=== PATIENT | female | born 1950 | race Caucasian/White ===

== ENCOUNTER 2016-04-23 23:25 | Inpatient (IN) | payer OTHER ==
[~2016-04-23] VITALS: Ht 167.6 cm; Wt 49.5 kg
[~2016-04-23 23:25] MED LIST: GABA300C3 PO; LEVO50TA4 PO; NORC7.5T PO; OMEP20TA39 PO; ONDA8TAB8 PO; PLAV75TA PO; PROC10TA4 PO; PROM25TA5 PO; ST JTAB PO; SYMB160A INH; WALKER ROLLING
[2016-04-23 23:30] VITALS: PULSE 90; RESP 22; TEMP 98.3; O2SAT 100
[2016-04-23] MEDS ORDERED: methylPREDNISolone SOD SUCC 125 MG/2 ML VIAL IVP ONE (23:30)
--- NOTE | 2016-04-23 23:36 | PD ---
HPI Chief Complaint: Respiratory Distress Time Seen by Provider: 23:29 Travel History International Travel<30 days: No Contact w/Intl Traveler<30days: No Traveled to known affect area: No History of Present Illness HPI 65-year-old female with history of head and neck cancer, COPD, says post radiation therapy, chemotherapy every 3 weeks, last chemotherapy was last week, treated by oncologist Dr. Monahan, here for evaluation of shortness of breath and nonproductive cough. Symptoms have been progressively worsening since yesterday. Shortness of breath is at rest, worse with exertion. No fevers or chills. No chest pain. No history of DVT or PE. Patient is also complaining that her sacral decubitus ulcer is hurting her. She is able to ambulate from bed to the restroom. PFSH Past Medical History Anemia: Yes Arthritis: No Asthma: No Autoimmune Disease: No Anxiety: No Depression: No Heart Rhythm Problems: No Cancer: Yes (brain,neck, mets to lungs) Cardiovascular Problems: No High Cholesterol: No Chemotherapy: Yes (STARTED CHEMO 12/2015) Chest Pain: No Congestive Heart Failure: No COPD: No Cerebrovascular Accident: No Diabetes: No Endocrine: No Gastrointestinal Disorders: No GERD: No Genitourinary: No Hepatitis: No Hiatal Hernia: No Hypertension: No Immune Disorder: No Implanted Vascular Access Dvce: Yes Kidney Stones: No Musculoskeletal: No Neurologic: No Psychiatric: No Reproductive: No Respiratory: No Integumentary: No Migraines: No Radiation Therapy: No Renal Failure: No Seizures: No Sickle Cell Disease: Yes Sleep Apnea: No Thyroid Disease: Yes ?: Not LMP: menapause Past Surgical History Abdominal Surgery: No AICD: No Arteriovenous Shunt: No Body Medical Devices: CHEMOPORT R CHEST Cardiac Surgery: No Ear Surgery: No Endocrine Surgery: No Eye Surgery: No Genitourinary Surgery: No Gynecologic Surgery: Yes (D&C ) Insulin Pump: No Joint Replacement: No Oral Surgery: Yes Pacemaker: No Thoracic Surgery: No Tonsillectomy: Yes Other Surgery: Yes (catherization to both legs) Social History Alcohol Use: Yes Tobacco Use: Yes (2p) Substance Use: No Allergies-Medications (Allergen,Severity, Reaction): Coded Allergies: No Known Allergies (Verified , 07/09/15) Reported Meds & Prescriptions Reported Meds & Active Scripts Active Walker Rolling (Device) Device 1 Ea Reported Symbicort (Budesonide/Formoterol Fumarate) 160 Mcg/4.5 Mcg Aer 2 Puff INH BID * SHAKE WELL BEFORE USE * Compazine (Prochlorperazine Maleate) 10 Mg Tab 10 Mg PO Q6H PRN Take 1 tablet by mouth every 6 hours as needed for nausea and/or vomiting (generic for compazine) [place] 7.5-325 mg (Hydrocodone-Acetaminophen 7.5-325 mg) 1 Tab 1 Tab PO Q6H PRN Hm Omeprazole (Omeprazole) 20 Mg Tab 20 Mg PO DAILY Phenergan 25 mg (Promethazine HCl) 25 Mg Tab 25 Mg PO Q6H PRN Levothyroxine 50 mcg (Levothyroxine Sodium) 50 Mcg Tab 50 Mcg PO DAILY Gabapentin 300 Mg Cap 300 Mg PO TID Aspirin Ec Low Dose (Aspirin) 81 Mg Tab 81 Mg PO DAILY Plavix (Clopidogrel Bisulfate) 75 Mg Tab 75 Mg PO DAILY Ondansetron Odt (Ondansetron) 8 Mg Tab 1 Tab PO DIRECTED Review of Systems Except as stated in HPI: all other systems reviewed are Neg Physical Exam Narrative GENERAL: Well-developed, cachectic, comfortable, no acute distress. SKIN: Warm and dry. Stage II sacral decubitus ulcer with mild surrounding erythema and warmth, no purulent drainage. HEAD: Atraumatic. Normocephalic. EYES: Pupils equal and round. No scleral icterus. No injection or drainage. ENT: Mucous membranes pink and dry. NECK: Trachea midline. No JVD. No nuchal rigidity. CARDIOVASCULAR: Regular rate and rhythm. RESPIRATORY: No accessory muscle use. Clear to auscultation. Poor air movement bilaterally. GASTROINTESTINAL: Abdomen soft, non-tender, nondistended. MUSCULOSKELETAL: No obvious deformities. No clubbing. No cyanosis. No edema. NEUROLOGICAL: Awake and alert. No obvious cranial nerve deficits. Motor grossly within normal limits. Normal speech. PSYCHIATRIC: Appropriate mood and affect; insight and judgment normal. Data Data Last Documented VS Vital Signs Date Time Temp Pulse Resp B/P Pulse Ox O2 Delivery O2 Flow Rate FiO2 04/23/16 23:33 100 Room Air 04/23/16 23:30 98.3 90 22 Orders Complete Blood Count With Diff (04/23/16 23:29) Comprehensive Metabolic Panel (04/23/16 23:29) Act Partial Throm Time (Ptt) (04/23/16 23:29) Prothrombin Time / Inr (Pt) (04/23/16 23:29) Ckmb (Isoenzyme) Profile (04/23/16 23:29) Troponin I (04/23/16 23:29) Influenzae A/B Antigen (04/23/16 23:29) Blood Culture (04/23/16 23:29) Iv Access Insert/Monitor (04/23/16:29) Electrocardiogram (04/23/16:29) Ecg Monitoring (04/23/16:29) Oximetry (04/23/16:29) Oxygen Administration (04/23/16 23:29) Chest, Single Ap (04/23/16 23:29) Ct Pulmonary Angiogram (04/23/16 23:29) Sodium Chloride 0.9% Flush (Ns Flush) (04/23/16 23:30) Methylprednisolone So Succ Inj (Solumedr (04/23/16 23:30) Albuterol-Ipratropium Neb (Duoneb Neb) (04/23/16 23:30) Type And Screen (04/24/16 00:50) Sodium Chlor 0.9% 1000 Ml Inj (Ns 1000 M (04/24/16 01:03) Red Blood Cells (Rbc) (04/24/16 01:27) Blood Product Administration .UPON TRANSFUSION (04/24/16 01:27) Vancomycin Inj (Vancomycin Inj) (04/24/16 01:30) Iohexol 350 Inj (Omnipaque 350 Inj) (04/24/16 01:28) Labs Laboratory Tests Test 04/23/16 04/24/16 04/24/16 04/24/16 23:55 00:55 01:27 02:45 White Blood Count 26.0 TH/MM3 Red Blood Count 1.92 MIL/MM3 Hemoglobin 7.4 GM/DL Hematocrit 21.9 % Mean Corpuscular Volume 114.1 FL Mean Corpuscular Hemoglobin 38.5 PG Mean Corpuscular Hemoglobin 33.8 % Concent Red Cell Distribution Width 24.6 % Platelet Count 85 TH/MM3 Mean Platelet Volume 10.1 FL Neutrophils (%) (Auto) 95.8 % Lymphocytes (%) (Auto) 3.4 % Monocytes (%) (Auto) 0.4 % Eosinophils (%) (Auto) 0.1 % Basophils (%) (Auto) 0.3 % Neutrophils # (Auto) 24.9 TH/MM3 Lymphocytes # (Auto) 0.9 TH/MM3 Monocytes # (Auto) 0.1 TH/MM3 Eosinophils # (Auto) 0.0 TH/MM3 Basophils # (Auto) 0.1 TH/MM3 CBC Comment AUTO DIFF Differential Total Cells 100 Counted Neutrophils % (Manual) 74 % Band Neutrophils % 15 % Lymphocytes % 4 % Monocytes % 7 % Neutrophils # (Manual) 23.1 TH/MM3 Differential Comment FINAL DIFF MANUAL Platelet Estimate LOW Platelet Morphology Comment NORMAL Prothrombin Time 11.4 SEC Prothromb Time International 1.0 RATIO Ratio Activated Partial 25.4 SEC Thromboplast Time Sodium Level 126 MEQ/L Potassium Level 3.8 MEQ/L Chloride Level 90 MEQ/L Carbon Dioxide Level 24.1 MEQ/L Anion Gap 12 MEQ/L Blood Urea Nitrogen 8 MG/DL Creatinine 0.34 MG/DL Estimat Glomerular Filtration 194 ML/MIN Rate Random Glucose 91 MG/DL Calcium Level 8.0 MG/DL Total Bilirubin 0.3 MG/DL Aspartate Amino Transf 13 U/L (AST/SGOT) Alanine Aminotransferase 15 U/L (ALT/SGPT) Alkaline Phosphatase 129 U/L Total Creatine Kinase 33 U/L Troponin I LESS THAN 0.02 NG/ML Total Protein 6.2 GM/DL Albumin 3.0 GM/DL Blood Type AB NEGATIVE Antibody Screen POSITIVE Crossmatch Leukocyte-Reduced Red Blood Cells Blood Bank Comment Antibody Identification Anti-D MDM Medical Decision Making Medical Screen Exam Complete: Yes Emergency Medical Condition: Yes Medical Record Reviewed: Yes Differential Diagnosis Pneumonia, influenza, bronchitis, pneumothorax, PE, ACS, anemia, pulmonary edema , sacral decubitus ulcer, cellulitis Narrative Course Vital signs reviewed. CBC shows WBC 26, hemoglobin 7.4, hematocrit 21.9, platelets 85, neutrophils 74% . CMP is remarkable for sodium 126, chloride 90, otherwise unremarkable. Cardiac enzymes are negative. Influenza is negative. Chest x-ray read as clear lungs. CT pulmonary angiogram: CONCLUSION: 1. The study is negative for pulmonary embolism. 2. Known malignancy with 3 parenchymal opacities, the largest medial right costophrenic angle measuring 1.9 cm. Patient was made aware of all findings. She reports receiving Neulasta with her chemotherapy. This could account for her leukocytosis. She does have a sacral decubitus ulcer with surrounding warmth and erythema concerning for possible cellulitis. Case discussed with oncologist Dr. Ellis covering for Dr. Monahan. He agrees with transfusing the patient 1 unit of packed red blood cells as well as starting the patient on antibiotics for infected sacral decubitus ulcer. Case discussed with [facility] hospitalist Dr. Munroe who will admit the patient to his service. Diagnosis Primary Impression: Symptomatic anemia Additional Impressions: Cellulitis Qualified Code: L03.317 - Cellulitis of buttock Sacral decubitus ulcer, stage II Leukocytosis Qualified Code: D72.829 - Leukocytosis, unspecified type Dyspnea Qualified Code: R06.02 - Shortness of breath Hyponatremia Thrombocytopenia Admitting Information Admitting Physician Requests: it Mitesh Fulton MD Apr 23, 2016 23:35
[2016-04-24] VITALS (17 sets, daily range): BP systolic 112–141; BP diastolic 53–85; PULSE 82–105; RESP 16–22; TEMP 97–98.8; O2SAT 95–100
--- NOTE | 2016-04-24 00:13 | RADRPT ---
EXAM DATE/TIME: 04/23/2016 23:58 [facility] COMPARISON: CHEST SINGLE AP, January 13, 2016, 23:58. INDICATIONS : Shortness of breath. MEDICAL HISTORY : Carcinoma of the head and neck SURGICAL HISTORY : None. ENCOUNTER: Initial ACUITY: 1 day PAIN SCORE: 0/10 LOCATION: Bilateral chest FINDINGS: A single view of the chest demonstrates the lungs to be symmetrically aerated without evidence of mas s, infiltrate or effusion. The cardiomediastinal contours are unremarkable. Healed fractures of the posterior-lateral left 5th 6th and 7th ribs similar to prior. [id number] catheter tip projects i n the right atrium.. CONCLUSION: The lungs are clear. Jorge Philip MD on April 24, 2016 at 0:11 Board Certified Radiologist. This report was verified electronically.
[2016-04-24] MEDS: RESP: ALBUTEROL 2.5 MG/IPRATROPIUM 0.5 MG NEB (SCH) INH (00:26)
[2016-04-24 00:35] LABS: AUTOMATED NEUTROPHIL # 24.9 TH/MM3 (1.8-7.7); BASOPHIL # 0.1 TH/MM3 (0-0.2); BASOPHIL % 0.3 % (0.0-2.0); EOSINOPHIL % 0.1 % (0.0-4.0); HEMATOCRIT 21.9 % (35.0-46.0); LYMPH % 3.4 % (9.0-44.0); LYMPHOCYTE # 0.9 TH/MM3 (1.0-4.8); MEAN CELL VOLUME 114.1 FL (80.0-100.0); MEAN CORPUSCULAR HEMOGLOBIN 38.5 PG (27.0-34.0); MEAN CORPUSCULAR HGB CONC 33.8 % (32.0-36.0); MONO % 0.4 % (0.0-8.0); NEUT % 95.8 % (16.0-70.0); PLATELET COUNT 85 TH/MM3 (150-450); RED BLOOD COUNT 1.92 MIL/MM3 (4.00-5.30); RED CELL DISTRIBUTION WIDTH 24.6 % (11.6-17.2)
[2016-04-24 00:40] LABS: HEMO FLAGS AUTO DIFF
[2016-04-24 00:43] LABS: APTT (PATIENT) 25.4 SEC (24.3-30.1); PROTHROMBIN TIME - PATIENT 11.4 SEC (9.8-11.6)
[2016-04-24 00:47] LABS: ALT (GPT) 15 U/L (10-53); ANION GAP 12 MEQ/L (5-15); AST (GOT) 13 U/L (15-37); BICARBONATE 24.1 MEQ/L (21.0-32.0); BLOOD UREA NITROGEN 8 MG/DL (7-18); CHLORIDE 90 MEQ/L (98-107); GLOMERULAR FILTRATION RATE 194 ML/MIN (>89); POTASSIUM 3.8 MEQ/L (3.5-5.1); SODIUM (NA) 126 MEQ/L (136-145)
[2016-04-24 00:51] LABS: ALKALINE PHOSPHATASE 129 U/L (45-117); TOTAL BILIRUBIN ADULT 0.3 MG/DL (0.2-1.0)
[2016-04-24 00:58] LABS: CREATINE KINASE 33 U/L (26-192)
[2016-04-24 01:02] LABS: BANDS 15 % (0-6); NEUTROPHIL # MANUAL DIFF 23.1 TH/MM3 (1.8-7.7); POLYS (SEG NEUTROPHILS) 74 % (16-70); WBC DIFF SAMPLE 100
[2016-04-24] MEDS ORDERED: SODIUM CHLOR 0.9% 1000 ML INJ 1,000 ML IV SCH (01:03)
[2016-04-24 01:05] LABS: PLATELET ESTIMATE SMEAR LOW (NORMAL); PLATELET MORPHOLOGY NORMAL (NORMAL); SCAN/DIFF FINAL DIFF MANUAL
[2016-04-24] MEDS ORDERED: IOHEXOL 350 MG/ML 10 ML VIAL (for RAD DIAG) IV ONE (01:28)
[2016-04-24] MEDS ORDERED: VANCOMYCIN INJ 1,000 MG in SODIUM CHLOR 0.9% 250 ML INJ 250 ML IV ONE (01:30)
--- NOTE | 2016-04-24 02:41 | RADRPT ---
EXAM DATE/TIME: 04/24/2016 01:23 [facility] COMPARISON: CT NEEDLE BIOPSY LUNG, RIGHT, July 09, 2015, 10:07. CT NEEDLE BIOPSY LUNG, RIGHT, October 19, 2015, 10 :11. INDICATIONS : Short of breath. IV CONTRAST: 75 cc Omnipaque 350 (iohexol) IV RADIATION DOSE: 3.81 CTDIvol (mGy) MEDICAL HISTORY : Metastatic, lung. Brain cancer. Neck cancer. SURGICAL HISTORY : Tonsillectomy. ENCOUNTER: Initial ACUITY: 1 day PAIN SCALE: 0/10 LOCATION: chest TECHNIQUE: Volumetric scanning of the chest was performed using a pulmonary embolism protocol MIP images were re constructed. Using automated exposure control and adjustment of the mA and/or kV according to patien t size, radiation dose was kept as low as reasonably achievable to obtain optimal diagnostic quality images. FINDINGS: PULMONARY ARTERIES: No filling defects are seen in the pulmonary arteries through the segmental level. LUNGS: Oval mass in the medial right costophrenic angle which is previously undergone biopsy (poorly differe ntiated squamous cell carcinoma) measures 1.9 x 1.4 cm. There is a 8mm irregular opacity in the post erior left upper lung. Irregular opacity in the anterior right midlung measures 1.2 x 0.8 cm. There is also a calcified nodule in the same area. Moderate severity emphysema with upper lobe predominan ce. PLEURAE: There is no pleural thickening or pleural effusion. MEDIASTINUM: Multiple calcified lymph nodes in the subcarinal and right hilar region. CONCLUSION: 1. The study is negative for pulmonary embolism. 2. Known malignancy with 3 parenchymal opacities, the largest medial right costophrenic angle measuri ng 1.9 cm. Jorge Philip MD on April 24, 2016 at 2:33 Board Certified Radiologist. This report was verified electronically.
[2016-04-24] MEDS ORDERED: SODIUM CHLORIDE 0.9% FLUSH 5 ML FLUSH IVF PRN (03:00)
[2016-04-24] MEDS ORDERED: GABA300C5 PO (03:15)
[2016-04-24] MEDS ORDERED: OMEP20TA PO (03:15)
[2016-04-24] MEDS ORDERED: ASPI81CH CHEW (03:15)
[2016-04-24] MEDS ORDERED: PLAV75TA29 PO (03:15)
[2016-04-24] MEDS ORDERED: PROC10TA PO (03:15)
[2016-04-24] MEDS ORDERED: PROM25TA5 PO (03:15)
[2016-04-24] MEDS ORDERED: LEVO50TA4 PO (03:15)
[2016-04-24] MEDS ORDERED: SYMB80AE INH (03:15)
[2016-04-24] MEDS ORDERED: ZOFR8TAB PO (03:15)
[2016-04-24] MEDS ORDERED: HYDR-3288 PO (03:15)
[2016-04-24] MEDS: SODIUM CHLORIDE 0.9% FLUSH 5 ML FLUSH IVF SCH ×2 (09:30→21:59)
--- NOTE | 2016-04-24 13:01 | HHI.HP ---
HPI Service [facility] Hospitalists Primary Care Physician Virginia Nogueira MD Admission Diagnosis symptomatic anemia, infected sacral decubitus ulcer, leukocytosis Travel History International Travel<30 Days: No Contact w/Intl Traveler <30 Da: No Traveled to Known Affected Are: No History of Present Illness Ms. Clark is a 65 y/o female with head and neck cancer with mets to the lung s/ p XRT and is on chemo with Taxol and Carboplatin (last dose was 04/11/16), COPD, still smoking and drinking alcohol daily. [place] [facility] [place] with complaints of shortness of breath and nonproductive cough. The symptoms have reportedly been progressively worsening since yesterday. Her SOB but is worse with exertion. Denies any fevers or chills, chest pain, palpitations, nausea/vomiting. Patient is also has a known decubitus ulcer which is reportedly causing some pain. At baseline she is able to ambulate from bed to the restroom. Her labs at admission revealed a significantly elevated WBC count of 26,000 with elevated bands. She has been afebrile. CXR in the ED was negative. CTA Thorax was negative for pulmonary embolism but did show her known malignancy with 3 parenchymal opacities, the largest medial right costophrenic angle measuring 1.9 cm. She was given a dose of Solu-Medrol IV and Vancomycin IV in the ER. Review of Systems Constitutional: DENIES: Diaphoretic episodes, Fever, Chills, Night Sweats Eyes: DENIES: Vision loss Ears, nose, mouth, throat: DENIES: Hearing loss Respiratory: COMPLAINS OF: Cough, Shortness of breath, DENIES: Sputum production Cardiovascular: COMPLAINS OF: Dyspnea on Exertion, DENIES: Chest pain, Palpitations Gastrointestinal: DENIES: Abdominal pain, Diarrhea, Nausea, Vomiting Musculoskeletal: DENIES: Back pain, Neck pain Integumentary: DENIES: Rash Hematologic/lymphatic: DENIES: Lymphadenopathy Neurologic: DENIES: Headache Psychiatric: DENIES: Confusion Past Family Social History Past Medical History Head and neck cancer, SCC s/p XRT and Chemo in 2013 Metastatic disease in the lungs found in 09/2015 consistent with SCC consistent with the head and neck cancer 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 Anxiety Past Surgical History Bilateral LE stent (05/2015) Neck biopsy EGD/colonoscopy in 10/2015 Surgical extraction of all remaining teeth with four quadrants of alveoloplasty on 04/23/14 Right hand surgery in 2013 Tonsillectomy Reported Medications Phenergan 25 Mg PO Q6H PRN Prochlorperazine Maleate 10 Mg PO Q6H PRN Zofran 8 Mg PO TID Omeprazole 20 Mg PO DAILY Levothyroxine 50 Mcg PO DAILY [place] 7.5-325 mg Tab 1 Tab PO Q6H PRN Gabapentin 300 Mg PO TID Plavix 75 Mg PO DAILY Symbicort Inh 80-4.5 Mcg/Act Aero 2 Puff INH Q12HR Aspirin 81 Mg CHEW DAILY Allergies: Coded Allergies: No Known Allergies (Verified , 07/09/15) Family History Noncontributory Social History (+)Tobacco use, 1/2 ppd (+)Alcohol use, drinks 2-3 beers per day Physical Exam Vital Signs Vital Signs Date Time Temp Pulse Resp B/P Pulse Ox O2 Delivery O2 Flow Rate FiO2 04/24/16 09:28 86 22 118/85 96 04/24/16 08:00 84 17 134/66 97 04/24/16 07:00 85 18 134/63 99 Room Air 04/24/16 06:09 82 18 130/63 96 Room Air 04/24/16 04:46 98.8 88 16 121/66 97 Nasal Cannula 2 04/24/16 04:31 98.5 90 16 124/59 95 Room Air 04/24/16 03:38 96 Nasal Cannula 2.00 04/24/16 03:22 85 16 112/64 96 Nasal Cannula 2 04/24/16 02:00 100 16 139/63 100 Nasal Cannula 2 04/24/16 01:00 92 18 128/59 100 Nasal Cannula 2 04/24/16 00:30 88 18 141/71 100 Nasal Cannula 2 04/23/16 23:33 100 Room Air 04/23/16 23:33 100 Room Air 04/23/16 23:30 98.3 90 22 100 Physical Exam GENERAL: This is a well-nourished, well-developed patient, in no apparent distress. HEENT: Atraumatic. Normocephalic. No temporal or scalp tenderness. No scleral icterus. Airway patent. NECK: Trachea midline, supple, nontender. CARDIO: Regular. RESP: CTA bilaterally. No wheezes, rales, or rhonchi. ABD: +BS, soft, non-tender, nondistended. EXT: Extremities without clubbing, cyanosis, or edema. NEURO: Awake and alert. Motor and sensory grossly within normal limits. Normal speech. Laboratory Laboratory Tests Test 04/23/16 04/24/16 04/24/16 04/24/16 23:55 00:55 01:27 02:45 White Blood Count 26.0 Red Blood Count 1.92 Hemoglobin 7.4 Hematocrit 21.9 Mean Corpuscular Volume 114.1 Mean Corpuscular Hemoglobin 38.5 Mean Corpuscular Hemoglobin 33.8 Concent Red Cell Distribution Width 24.6 Platelet Count 85 Mean Platelet Volume 10.1 Neutrophils (%) (Auto) 95.8 Lymphocytes (%) (Auto) 3.4 Monocytes (%) (Auto) 0.4 Eosinophils (%) (Auto) 0.1 Basophils (%) (Auto) 0.3 Neutrophils # (Auto) 24.9 Lymphocytes # (Auto) 0.9 Monocytes # (Auto) 0.1 Eosinophils # (Auto) 0.0 Basophils # (Auto) 0.1 CBC Comment AUTO DIFF Differential Total Cells 100 Counted Neutrophils % (Manual) 74 Band Neutrophils % 15 Lymphocytes % 4 Monocytes % 7 Neutrophils # (Manual) 23.1 Differential Comment FINAL DIFF MANUAL Platelet Estimate LOW Platelet Morphology Comment NORMAL Prothrombin Time 11.4 Prothromb Time International 1.0 Ratio Activated Partial 25.4 Thromboplast Time Sodium Level 126 Potassium Level 3.8 Chloride Level 90 Carbon Dioxide Level 24.1 Anion Gap 12 Blood Urea Nitrogen 8 Creatinine 0.34 Estimat Glomerular Filtration 194 Rate Random Glucose 91 Calcium Level 8.0 Total Bilirubin 0.3 Aspartate Amino Transf 13 (AST/SGOT) Alanine Aminotransferase 15 (ALT/SGPT) Alkaline Phosphatase 129 Total Creatine Kinase 33 Troponin I LESS THAN 0.02 Total Protein 6.2 Albumin 3.0 Blood Type AB NEGATIVE Antibody Screen POSITIVE Crossmatch Leukocyte-Reduced Red Blood Cells Blood Bank Comment Antibody Identification Anti-D Date/Time Procedure Status Source Growth 04/24/16 01:00 Influenza Types A,B Antigen (VAUGHN) - Final Complete Nasal Washing NEGATIVE FOR FLU A AND B ANTIGEN.... 04/24/16 00:00 Aerobic Blood Culture Received Blood Peripheral Pending 04/24/16 00:00 Anaerobic Blood Culture Received Blood Peripheral Pending Result Diagram: 04/23/165 04/23/162354 Imaging Last Impressions Chest X-Ray 04/23/162328 Signed Impressions: Service Date/Time: Saturday, April 23, 2016 23:58 - CONCLUSION: The lungs are clear. Jorge Philip MD CT Angiography 04/23/162328 Signed Impressions: Service Date/Time: Sunday, April 24, 2016 01:23 - CONCLUSION: 1. The study is negative for pulmonary embolism. 2. Known malignancy with 3 parenchymal opacities, the largest medial right costophrenic angle measuring 1.9 cm. Jorge Philip MD Septic Shock Reassessment Heart: Regular rate and rhythm Lungs: Clear Skin: Warm Assessment and Plan Problem List: (1) Dyspnea Status: Acute Plan: - Pt with metastatic head and neck cancer to the lungs s/p XRT and on chemo with Carboplatin/Taxol, last round given on 04/11/16 - Pt follows with Dr. Monahan - Pt was admitted with increased SOB and nonproductive cough. - CXR was negative. - CTA (04/24/16) --> The study is negative for pulmonary embolism. Known malignancy with 3 parenchymal opacities, the largest medial right costophrenic angle measuring 1.9 cm. - Pt was given a dose of Solu-Medrol and a dose of Vancomycin in the ER. - Cont. Solu-medrol - Duonebs scheduled and PRN - Vancomycin - Resume Symbicort BID - Monitor clinical status closely - Supportive care - DVt prophylaxis (2) Leukocytosis Status: Acute Plan: - See above. (3) Sacral decubitus ulcer, stage II Status: Chronic (4) Symptomatic anemia Status: Chronic Plan: - Pt has had issues with anemia related to her chemo - No noted active bleeding issues - Pt transfused with 1 unit PRBCs in the ER. 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 (7) Tobacco abuse disorder Status: Chronic Plan: - Tobacco cessation (8) Hypertension Status: Chronic Plan: - Stable. Assessment and Plan Patient examined. Assessment and plan formulated with Bethany Quezada PA-C. I agree with the above. - continue IV vancomycin - obtain repeat cbc,bmp, mg in AM - NA 126, possibly d/t poor nutrition vs SIADH with malignancy - obtain labs for SIADH w/u - IVF with NS KCL, if NA worsens may require hypertonic saline - obtain sputum gram stain, C&S - obtain urine antigen pneumococcal & legionella Physician Certification 2 Midnight Certification Type: Admission for Inpatient Services Order for Inpatient Services The services are ordered in accordance with Medicare regulations or non- Medicare payer requirements, as applicable. In the case of services not specified as inpatient-only, they are appropriately provided as inpatient services in accordance with the 2-midnight benchmark. Estimated LOS (days): 3 3 days is the estimated time the patient will need to remain in the hospital, assuming treatment plan goals are met and no additional complications. Post-Hospital Plan: Not yet determined Problem Qualifiers (1) Dyspnea: Qualified Code: R06.02 - Shortness of breath (2) Leukocytosis: Qualified Code: D72.829 - Leukocytosis, unspecified type Bethany Quezada Apr 24, 2016 13:01 Pillo Wade DO Apr 24, 2016 13:39
[2016-04-24] MEDS ORDERED: ACETAMINOPHEN 325 MG TAB PO PRN (13:15)
[2016-04-24] MEDS ORDERED: PROCHLORPERAZINE MALEATE 10 MG TAB PO PRN (13:15)
[2016-04-24] MEDS: NS + KCL 20 MEQ INJ 1,000 ML IV SCH (14:13)
[2016-04-24] MEDS: CLOPIDOGREL 75 MG TAB PO SCH (14:14)
[2016-04-24] MEDS: ASPIRIN 81 MG CHEW TAB CHEW SCH (14:14)
[2016-04-24] MEDS: BUDESONIDE-FORMOTEROL 80/4.5 MCG INHALER INH SCH ×2 (14:16→21:59)
[2016-04-24] MEDS: ONDANSETRON HCL 4 MG/2 ML VIAL IV PRN (14:39)
[2016-04-24] MEDS: GABAPENTIN 300 MG CAP PO SCH (18:59)
[2016-04-24] MEDS: RESP: ALBUTEROL 2.5 MG/IPRATROPIUM 0.5 MG NEB (PRN) NEB (19:34)
[2016-04-24] MEDS: TEMAZEPAM 15 MG CAP PO PRN (22:06)
--- NOTE | 2016-04-24 23:30 | EKG ---
Date Performed: 04/24/2016 Time Performed: 00:20:33 PTAGE: 65 years EKG: Sinus rhythm POSSIBLE INFERIOR MYOCARDIAL INFARCTION BORDERLINE ECG PREVIOUS TRACING : 04/22/2015 13.21 Compared to prior tracing no significant change DOCTOR: Devin Bruce Interpretating Date/Time 04/24/2016 23:29:34
[2016-04-25] VITALS: BP 116/67; PULSE 87; RESP 18; TEMP 98; O2SAT 98
[2016-04-25] MEDS: NS + KCL 20 MEQ INJ 1,000 ML IV SCH ×2 (01:47→13:23)
[2016-04-25] MEDS: LEVOTHYROXINE SODIUM 50 MCG TAB PO SCH (06:31)
[2016-04-25 07:20] LABS: AUTOMATED NEUTROPHIL # 22.6 TH/MM3 (1.8-7.7); BASOPHIL % 0.1 % (0.0-2.0); HEMATOCRIT 24.7 % (35.0-46.0); MEAN CORPUSCULAR HEMOGLOBIN 36.8 PG (27.0-34.0); MEAN CORPUSCULAR HGB CONC 35.4 % (32.0-36.0); MONO % 4.8 % (0.0-8.0); NEUT % 91.1 % (16.0-70.0); PLATELET COUNT 71 TH/MM3 (150-450); RED BLOOD COUNT 2.38 MIL/MM3 (4.00-5.30); RED CELL DISTRIBUTION WIDTH 28.5 % (11.6-17.2); WHITE BLOOD COUNT 24.8 TH/MM3 (4.0-11.0)
[2016-04-25 07:26] LABS: HEMO FLAGS AUTO DIFF
[2016-04-25 07:40] VITALS: O2SAT 98
[2016-04-25 07:43] LABS: BICARBONATE 29.4 MEQ/L (21.0-32.0); MAGNESIUM 1.7 MG/DL (1.5-2.5)
[2016-04-25 08:00] VITALS: BP 113/61; PULSE 80; RESP 20; TEMP 98.5; O2SAT 95
[2016-04-25] MEDS: GABAPENTIN 300 MG CAP PO SCH ×3 (09:02→16:55)
[2016-04-25] MEDS: PANTOPRAZOLE SOD 20 MG DELAYED RELEASE TAB PO SCH (09:02)
[2016-04-25] MEDS: CLOPIDOGREL 75 MG TAB PO SCH (09:02)
[2016-04-25] MEDS: ASPIRIN 81 MG CHEW TAB CHEW SCH (09:02)
[2016-04-25] MEDS: BUDESONIDE-FORMOTEROL 80/4.5 MCG INHALER INH SCH ×2 (09:03→21:18)
[2016-04-25] MEDS: SODIUM CHLORIDE 0.9% FLUSH 5 ML FLUSH IVF SCH ×2 (09:03→21:18)
[2016-04-25 09:06] LABS: BANDS 24 % (0-6); NEUTROPHIL # MANUAL DIFF 21.8 TH/MM3 (1.8-7.7); POLYS (SEG NEUTROPHILS) 64 % (16-70); TOXIC GRANULATION 1+ (NORMAL); WBC DIFF SAMPLE 100
[2016-04-25 09:20] LABS: PLATELET ESTIMATE SMEAR LOW (NORMAL); PLATELET MORPHOLOGY NORMAL (NORMAL); SCAN/DIFF FINAL DIFF MANUAL
[2016-04-25] MEDS ORDERED: VANCOMYCIN INJ 1,000 MG in SODIUM CHLOR 0.9% 250 ML INJ 250 ML IV SCH (10:00)
[2016-04-25] MEDS ORDERED: Vancomycin Consult Pharmacy 1 EA OTHER SCH (10:00)
[2016-04-25] MEDS: ACETAMINOPHEN/HYDROcodone 325 MG/7.5 MG TAB PO PRN (10:14)
--- NOTE | 2016-04-25 10:50 | HHI.PR ---
Subjective Remarks Pt states that she is now thinking that most of her symptoms are related to when she eats and drinks things as far as her cough goes She feels like she has a lot of liquids or phlegm in her throat that she feels like she can't clear. ST evaluated this morning and she is recommended honey thickened liquids and pureed diet with recommendations for MBS Afebrile Objective Vitals Vital Signs Date Time Temp Pulse Resp B/P Pulse Ox O2 Delivery O2 Flow Rate FiO2 04/25/16 08:00 98.5 80 20 113/61 95 04/25/16 07:40 98 21 04/25/16 00:00 98.0 87 18 116/67 98 04/24/16 20:00 98.1 92 18 113/53 100 04/24/16 19:36 98 04/24/16 16:44 98 21 04/24/16 16:00 98.8 89 20 121/56 99 04/24/16 12:40 87 24 139/78 93 04/24/16 12:00 97.0 86 20 117/59 98 04/24/16 04/24/16 04/25/16 15:00 23:00 07:00 Intake Total 250 ml 1255 ml 751 ml Output Total 350 ml 400 ml Balance -100 ml 1255 ml 351 ml Intake Oral 240 ml 240 ml IV Total 1015 ml 511 ml Packed Cells 250 ml Output Urine Total 350 ml 400 ml # Voids 2 2 # Bowel Movements 0 Result Diagram: 04/25/16 0700 04/25/16 0700 Other Results Laboratory Tests Test 04/23/16 04/24/16 04/24/16 04/24/16 23:55 00:55 01:27 02:45 White Blood Count 26.0 TH/MM3 Red Blood Count 1.92 MIL/MM3 Hemoglobin 7.4 GM/DL Hematocrit 21.9 % Mean Corpuscular Volume 114.1 FL Mean Corpuscular Hemoglobin 38.5 PG Mean Corpuscular Hemoglobin 33.8 % Concent Red Cell Distribution Width 24.6 % Platelet Count 85 TH/MM3 Mean Platelet Volume 10.1 FL Neutrophils (%) (Auto) 95.8 % Lymphocytes (%) (Auto) 3.4 % Monocytes (%) (Auto) 0.4 % Eosinophils (%) (Auto) 0.1 % Basophils (%) (Auto) 0.3 % Neutrophils # (Auto) 24.9 TH/MM3 Lymphocytes # (Auto) 0.9 TH/MM3 Monocytes # (Auto) 0.1 TH/MM3 Eosinophils # (Auto) 0.0 TH/MM3 Basophils # (Auto) 0.1 TH/MM3 CBC Comment AUTO DIFF Differential Total Cells 100 Counted Neutrophils % (Manual) 74 % Band Neutrophils % 15 % Lymphocytes % 4 % Monocytes % 7 % Neutrophils # (Manual) 23.1 TH/MM3 Differential Comment FINAL DIFF MANUAL Platelet Estimate LOW Platelet Morphology Comment NORMAL Prothrombin Time 11.4 SEC Prothromb Time International 1.0 RATIO Ratio Activated Partial 25.4 SEC Thromboplast Time Sodium Level 126 MEQ/L Potassium Level 3.8 MEQ/L Chloride Level 90 MEQ/L Carbon Dioxide Level 24.1 MEQ/L Anion Gap 12 MEQ/L Blood Urea Nitrogen 8 MG/DL Creatinine 0.34 MG/DL Estimat Glomerular Filtration 194 ML/MIN Rate Random Glucose 91 MG/DL Calcium Level 8.0 MG/DL Total Bilirubin 0.3 MG/DL Aspartate Amino Transf 13 U/L (AST/SGOT) Alanine Aminotransferase 15 U/L (ALT/SGPT) Alkaline Phosphatase 129 U/L Total Creatine Kinase 33 U/L Troponin I LESS THAN 0.02 NG/ML Total Protein 6.2 GM/DL Albumin 3.0 GM/DL Blood Type AB NEGATIVE Antibody Screen POSITIVE Crossmatch Leukocyte-Reduced Red Blood Cells Blood Bank Comment Antibody Identification Anti-D Test 04/24/16 04/24/16 04/25/16 15:25 16:26 07:00 Serum Osmolality 275 MOSM/KG Urine Osmolality 289 MOSM/KG Urine Random Sodium 18 MEQ/L Urine Random Chloride 41 MEQ/L White Blood Count 24.8 TH/MM3 Red Blood Count 2.38 MIL/MM3 Hemoglobin 8.7 GM/DL Hematocrit 24.7 % Mean Corpuscular Volume 104.0 FL Mean Corpuscular Hemoglobin 36.8 PG Mean Corpuscular Hemoglobin 35.4 % Concent Red Cell Distribution Width 28.5 % Platelet Count 71 TH/MM3 Mean Platelet Volume 9.1 FL Neutrophils (%) (Auto) 91.1 % Lymphocytes (%) (Auto) 4.0 % Monocytes (%) (Auto) 4.8 % Eosinophils (%) (Auto) 0.0 % Basophils (%) (Auto) 0.1 % Neutrophils # (Auto) 22.6 TH/MM3 Lymphocytes # (Auto) 1.0 TH/MM3 Monocytes # (Auto) 1.2 TH/MM3 Eosinophils # (Auto) 0.0 TH/MM3 Basophils # (Auto) 0.0 TH/MM3 CBC Comment AUTO DIFF Differential Total Cells 100 Counted Neutrophils % (Manual) 64 % Band Neutrophils % 24 % Lymphocytes % 6 % Monocytes % 6 % Neutrophils # (Manual) 21.8 TH/MM3 Differential Comment FINAL DIFF MANUAL Toxic Granulation 1+ Platelet Estimate LOW Platelet Morphology Comment NORMAL Polychromasia 2.0 % Sodium Level 136 MEQ/L Potassium Level 4.0 MEQ/L Chloride Level 99 MEQ/L Carbon Dioxide Level 29.4 MEQ/L Anion Gap 8 MEQ/L Blood Urea Nitrogen 8 MG/DL Creatinine 0.35 MG/DL Estimat Glomerular Filtration 187 ML/MIN Rate Random Glucose 103 MG/DL Calcium Level 8.5 MG/DL Magnesium Level 1.7 MG/DL Imaging Last Impressions Chest X-Ray 04/23/162328 Signed Impressions: Service Date/Time: Saturday, April 23, 2016 23:58 - CONCLUSION: The lungs are clear. Jroge Philip MD CT Angiography 04/23/162328 Signed Impressions: Service Date/Time: Sunday, April 24, 2016 01:23 - CONCLUSION: 1. The study is negative for pulmonary embolism. 2. Known malignancy with 3 parenchymal opacities, the largest medial right costophrenic angle measuring 1.9 cm. Jorge Philip MD Objective Remarks General: NAD, AAOx3 Chest: upper airway congestion that somewhat clears with coughing. 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 Monahan - Pt was admitted with increased SOB and nonproductive cough. - CXR was negative. - CTA (04/24/16) --> The study is negative for pulmonary embolism. Known malignancy with 3 parenchymal opacities, the largest medial right costophrenic angle measuring 1.9 cm. - Pt was given a dose of Solu-Medrol and a dose of Vancomycin in the ER. - Duonebs scheduled and PRN - Vancomycin continued - Cont. Symbicort BID - Pt possibly chronically aspirating with reported coughing with eating and drinking. - ST evaluated the pt this morning and recommended pureed diet with honey thickened liquids - MBS to evaluate for aspiration - Supportive care - DVt prophylaxis (2) Leukocytosis Status: Acute Plan: - See above. (3) Sacral decubitus ulcer, stage II Status: Chronic Plan: - Wound care consulted and they have made recommendations for dressing changes QOD and rotating the pt to keep her off the pressure ulcer. - Wave bed requested (4) Symptomatic anemia Status: Chronic Plan: - Pt has had issues with anemia related to her chemo - No noted active bleeding issues - Pt transfused with 1 unit PRBCs in the ER. - H/H slight improved today - Pt notably macrocytic, may be due to nutritional deficiency with poor po intake - Check B12 and Folate levels (5) Thrombocytopenia Status: Chronic Plan: - Also noted to be related to her chemo - Monitor (6) Metastatic squamous cell carcinoma to lung Status: Chronic Plan: - See above. (7) Tobacco abuse disorder Status: Chronic Plan: - Tobacco cessation (8) Hypertension Status: Chronic Plan: - Stable. Assessment and Plan Patient examined. Assessment and plan formulated with Bethany Quezada PA-C. I agree with the above. concern for aspiration. evaluation underway. oncology to see. f/u ct studies. 05/07 blood cx staph epi.?contaminant but she does have port..cx from port pending. cont abx for now and recheck wbc. Problem Qualifiers (1) Dyspnea: Qualified Code: R06.02 - Shortness of breath (2) Leukocytosis: Qualified Code: D72.829 - Leukocytosis, unspecified type Bethany Quezada Apr 25, 2016 10:50 Kobi Mac MD Apr 25, 2016 21:29
[2016-04-25 12:00] VITALS: BP 120/60; PULSE 78; RESP 19; TEMP 98.4; O2SAT 95
--- NOTE | 2016-04-25 12:23 | RADRPT ---
EXAM DATE/TIME: 04/25/2016 00:00 [facility] COMPARISON: No previous studies available for comparison. INDICATIONS : Dysphagia, weight loss FLUORO TIME: 7.8 minutes IMAGE COUNT: 0 CONTRAST: Dose as prescribed by speech pathologist. MEDICAL HISTORY : head and neck ca, radiation therapy SURGICAL HISTORY : None. ENCOUNTER: Initial ACUITY: 7 - 11 months PAIN SCORE: 0/10 LOCATION: Bilateral esophagus FINDINGS: A modified barium swallow was performed with speech pathology. Patient was given a variety of liquids to swallow. There is poor movement of the epiglottis with persistent vallecular pooling. Episode of penetration w as appreciated. For a full detailed report, see report by the speech pathologist. CONCLUSION: Please see speech pathology report Tyrese Rodriguez MD on April 25, 2016 at 12:21 Board Certified Radiologist. This report was verified electronically.
[2016-04-25] MEDS: ONDANSETRON HCL 4 MG/2 ML VIAL IV PRN (14:47)
[2016-04-25] MEDS: VANCOMYCIN INJ 800 MG in SODIUM CHLOR 0.9% 250 ML INJ 250 ML IV SCH (15:39)
[2016-04-25 16:00] VITALS: BP 99/58; PULSE 82; RESP 19; TEMP 98.4; O2SAT 100
[2016-04-25 20:00] VITALS: BP 146/71; PULSE 81; RESP 18; TEMP 97.7; O2SAT 100
[2016-04-25] MEDS ORDERED: IOHEXOL 350 MG/ML 10 ML VIAL (for RAD DIAG) IV ONE (21:50)
[2016-04-25] MEDS: TEMAZEPAM 15 MG CAP PO PRN (22:18)
--- NOTE | 2016-04-25 23:29 | RADRPT ---
EXAM DATE/TIME: 04/25/2016 21:36 [facility] COMPARISON: No previous studies available for comparison. INDICATIONS : Evaluate for recurrent oral cancer and cause for aspiration. IV CONTRAST: 50 cc Omnipaque 350 (iohexol) IV RADIATION DOSE: 17.01 CTDIvol (mGy) MEDICAL HISTORY : Carcinoma, oral cavity. Brain mets. SURGICAL HISTORY : None. ENCOUNTER: Initial ACUITY: 1 day PAIN SCALE: 0/10 LOCATION: neck TECHNIQUE: Volumetric scanning of the neck was performed. Using automated exposure control and adjustment of th e mA and/or kV according to patient size, radiation dose was kept as low as reasonably achievable to obtain optimal diagnostic quality images. FINDINGS: Comparison is February 2014. Previous left-sided supraclavicular mass has resolved except for minimal residual soft tissue. There is some soft tissue swelling in the glottic region and in the supraglott ic region. This is fairly symmetric and could be related to prior radiation. This would be better prasanna luated with direct visualization. There is emphysema and apical lung scarring noted. Atherosclerotic calcifications noted in both carot id arteries especially around the bifurcations. There is mucosal thickening in the posterior right et hmoid air cells. CONCLUSION: 1. Mild soft tissue swelling in the supraglottic and glottic region that is fairly symmetric and of u ncertain etiology but possibly related to prior radiation. Previous left supraclavicular mass has zak rly completely resolved. No new adenopathy in the neck. [id number] present. See above discussion. Joey Swenson MD on April 25, 2016 at 23:19 Board Certified Radiologist. This report was verified electronically.
[2016-04-26] VITALS: BP 160/83; PULSE 93; RESP 16; TEMP 98; O2SAT 95
[2016-04-26] MEDS: NS + KCL 20 MEQ INJ 1,000 ML IV SCH ×2 (03:09→12:01)
[2016-04-26] MEDS: VANCOMYCIN INJ 800 MG in SODIUM CHLOR 0.9% 250 ML INJ 250 ML IV SCH ×2 (03:09→14:53)
[2016-04-26 04:00] VITALS: BP 138/70; PULSE 106; RESP 20; TEMP 97.7; O2SAT 97
[2016-04-26 05:29] LABS: AUTOMATED NEUTROPHIL # 18.7 TH/MM3 (1.8-7.7); BASOPHIL # 0.1 TH/MM3 (0-0.2); BASOPHIL % 0.3 % (0.0-2.0); HEMATOCRIT 27.7 % (35.0-46.0); LYMPH % 5.1 % (9.0-44.0); LYMPHOCYTE # 1.1 TH/MM3 (1.0-4.8); MEAN CELL VOLUME 105.8 FL (80.0-100.0); MEAN CORPUSCULAR HEMOGLOBIN 36.3 PG (27.0-34.0); MEAN CORPUSCULAR HGB CONC 34.3 % (32.0-36.0); MONO % 7.5 % (0.0-8.0); NEUT % 87.1 % (16.0-70.0); PLATELET COUNT 85 TH/MM3 (150-450); RED BLOOD COUNT 2.62 MIL/MM3 (4.00-5.30); RED CELL DISTRIBUTION WIDTH 28.8 % (11.6-17.2); WHITE BLOOD COUNT 21.5 TH/MM3 (4.0-11.0)
[2016-04-26 05:35] LABS: HEMO FLAGS AUTO DIFF
[2016-04-26] MEDS: LEVOTHYROXINE SODIUM 50 MCG TAB PO SCH (05:47)
[2016-04-26 05:53] LABS: BICARBONATE 29.4 MEQ/L (21.0-32.0); MAGNESIUM 1.3 MG/DL (1.5-2.5); POTASSIUM 3.3 MEQ/L (3.5-5.1)
[2016-04-26] MEDS ORDERED: ALPRAZolam 0.25 MG TAB PO PRN (06:00)
[2016-04-26 08:00] VITALS: BP 136/78; PULSE 104; RESP 19; TEMP 97.8; O2SAT 100
[2016-04-26] MEDS: ASPIRIN 81 MG CHEW TAB CHEW SCH (08:06)
[2016-04-26] MEDS: PANTOPRAZOLE SOD 20 MG DELAYED RELEASE TAB PO SCH (08:06)
[2016-04-26] MEDS: SODIUM CHLORIDE 0.9% FLUSH 5 ML FLUSH IVF SCH ×2 (08:06→21:06)
[2016-04-26] MEDS: BUDESONIDE-FORMOTEROL 80/4.5 MCG INHALER INH SCH ×2 (08:06→21:05)
[2016-04-26] MEDS: GABAPENTIN 300 MG CAP PO SCH ×3 (08:06→16:47)
[2016-04-26] MEDS: CLOPIDOGREL 75 MG TAB PO SCH (08:06)
[2016-04-26 08:23] LABS: BANDS 7 % (0-6); MYELOCYTES 1 % (0-0); NEUTROPHIL # MANUAL DIFF 19.1 TH/MM3 (1.8-7.7); POLYS (SEG NEUTROPHILS) 81 % (16-70); WBC DIFF SAMPLE 100
[2016-04-26 08:24] LABS: PLATELET ESTIMATE SMEAR LOW (NORMAL); PLATELET MORPHOLOGY NORMAL (NORMAL); SCAN/DIFF FINAL DIFF MANUAL
[2016-04-26] MEDS ORDERED: ALTEPLASE RECOMBINANT 2 MG VIAL INTRACATH ONE (08:30)
--- NOTE | 2016-04-26 08:37 | MB ---
cc: TENNILLE VANG M.D. DATE OF CONSULTATION: 04/25/2016 REASON FOR CONSULTATION Consult requested by nurse practitioner, Damien, for follow-up of head and neck cancer in a patient who is admitted with aspiration and has positive blood cultures. HISTORY OF PRESENT ILLNESS This is a 65-year-old very pleasant unfortunate white female. She is under the care of Dr. Hai Monahan, my associate, for metastatic head and neck cancer. The patient was diagnosed with squamous cell carcinoma of the head and neck and in February 2014 she underwent carboplatin and Taxol chemotherapy followed by concurrent radiation and concurrent carboplatin chemotherapy. She completed it in July 2014. She was considered to be in remission but in October of last year she was found to have lung metastasis, biopsy-proven. The biopsy showed squamous cell carcinoma consistent with head and neck cancer. She has been on carboplatin and Taxol chemotherapy. So far she has had seven cycles. The last chemotherapy was on April 11. The patient was in her usual status of health up until last week when she developed a cough and shortness of breath. The symptoms were getting worse and she decided to come to the emergency room. The patient had a fever and the blood test came back positive. She is on antibiotics. She had leukocytosis with a white count of 26,000 on admission with bandemia. She had a CT angiogram of the chest which she did not show any pulmonary embolism but shows the known metastatic disease to the lung. Subsequently, the patient had a swallowing study done which showed that she is having aspiration. I have been asked to see the patient for further evaluation. The patient is having trouble with swallowing. She is on a puree diet but she does not like it. She wants to eat solid food. She denies any nausea or vomiting. She is complaining of weakness, tiredness and fatigue. The rest of the review of systems is negative. PAST MEDICAL HISTORY 1. Head and neck cancer diagnosed in February 2014. She was found to have lung metastasis in September 2015. 2. Anxiety disorder. 3. DVT of the right lower extremity. 4. Hypothyroidism. PAST SURGICAL HISTORY 1. Bilateral lower extremity stent placement. 2. Neck mass biopsy. 3. Upper endoscopy. 4. Colonoscopy. 5. Right hand surgery. 6. Tonsillectomy. 7. [id number] placement. ALLERGIES None. MEDICATIONS 1. Phenergan. 2. Prochlorperazine. 3. Zofran. 4. Omeprazole. 5. Levothyroxine. 6. [place]. 7. Gabapentin. 8. Plavix. 9. Symbicort. 10. Aspirin. FAMILY HISTORY Noncontributory. SOCIAL HISTORY The patient smokes cigarettes, half-pack a day. Also drinks alcohol, 2-3 beers per day. PHYSICAL EXAMINATION GENERAL: A well-developed chronically ill-appearing white female in no apparent distress. VITAL SIGNS: Temperature 98.4, heart rate 82, blood pressure 99/58. HEENT: PERRLA. EOMI. Anicteric. No oral lesions are noted. NECK: No lymphadenopathy noted. LUNGS: Clear. No wheezing, rhonchi or rales. HEART: Tachycardia with no murmur. ABDOMEN: Soft, nontender. EXTREMITIES: No pedal edema. NEUROLOGIC: Awake, alert, oriented x3. SKIN: No significant lesions are noted. ASSESSMENT 1. Head and neck cancer with metastatic disease to the lung currently on palliative carboplatin and Taxol chemotherapy. The last cycle was on April 11. 2. Thrombocytopenia and macrocytic anemia, most likely due to the recent chemotherapy. 3. Leukocytosis with bandemia due to possible aspiration pneumonia as well as sepsis. 4. Positive blood culture for staph epidermis, could be contaminant. The blood culture needs to be repeated. 5. Aspiration, on modified puree diet. PLAN I have reviewed her available records and I have discussed with the patient regarding her condition. We discussed that she has developed aspiration. The patient will benefit from getting a CAT scan of the soft tissue neck to evaluate for any oral pathology which could be doing that. I will order the CAT scan of the soft tissue neck. The patient is currently on antibiotic vancomycin for gram-positive cocci positive blood cultures. She does not have any fever so this could be a contaminant, and I recommend to repeat the blood cultures. The patient does not require any blood or platelet transfusion at this time. Further recommendations to follow. I will ask Dr. Monahan to see her tomorrow. Thank you for asking my opinion. MD DAVIDE Alfonso/ONEISMO /7:08 PM /8:08 AM
[2016-04-26] MEDS: LORazepam 0.5 MG TAB PO PRN ×2 (09:00→14:54)
--- NOTE | 2016-04-26 10:50 | PD.ONC.PN ---
Subjective Subjective Remarks Afebrile overnight. Patient resting comfortably. She felt anxious overnight, but just took a xanax and feels a bit better. She says she had anxiety because she was having a hard time breathing, but feels better now. Objective Data Date Time Temp Pulse Resp B/P Pulse Ox O2 Delivery O2 Flow Rate FiO2 04/26/16 08:00 97.8 104 19 136/78 100 04/26/16 04:00 97.7 106 20 138/70 97 04/26/16 00:00 98.0 93 16 160/83 95 04/25/16 20:00 97.7 81 18 146/71 100 04/25/16 16:00 98.4 82 19 99/58 100 04/25/16 12:00 98.4 78 19 120/60 95 04/25/16 11:14 20 04/26/16 04/26/16 04/26/16 07:00 15:00 23:00 Intake Total 1120 ml 120 ml Output Total 2000 ml Balance -880 ml 120 ml Result Diagram: 04/26/16 0457 04/26/16 0457 Laboratory Results Laboratory Tests Test 04/26/16 04:57 White Blood Count 21.5 TH/MM3 Red Blood Count 2.62 MIL/MM3 Hemoglobin 9.5 GM/DL Hematocrit 27.7 % Mean Corpuscular Volume 105.8 FL Mean Corpuscular Hemoglobin 36.3 PG Mean Corpuscular Hemoglobin 34.3 % Concent Red Cell Distribution Width 28.8 % Platelet Count 85 TH/MM3 Mean Platelet Volume 9.1 FL Neutrophils (%) (Auto) 87.1 % Lymphocytes (%) (Auto) 5.1 % Monocytes (%) (Auto) 7.5 % Eosinophils (%) (Auto) 0.0 % Basophils (%) (Auto) 0.3 % Neutrophils # (Auto) 18.7 TH/MM3 Lymphocytes # (Auto) 1.1 TH/MM3 Monocytes # (Auto) 1.6 TH/MM3 Eosinophils # (Auto) 0.0 TH/MM3 Basophils # (Auto) 0.1 TH/MM3 CBC Comment AUTO DIFF Differential Total Cells 100 Counted Neutrophils % (Manual) 81 % Band Neutrophils % 7 % Lymphocytes % 4 % Monocytes % 7 % Neutrophils # (Manual) 19.1 TH/MM3 Myelocytes 1 % Differential Comment FINAL DIFF MANUAL Platelet Estimate LOW Platelet Morphology Comment NORMAL Sodium Level 129 MEQ/L Potassium Level 3.3 MEQ/L Chloride Level 91 MEQ/L Carbon Dioxide Level 29.4 MEQ/L Anion Gap 9 MEQ/L Blood Urea Nitrogen 5 MG/DL Creatinine 0.28 MG/DL Estimat Glomerular Filtration 243 ML/MIN Rate Random Glucose 91 MG/DL Calcium Level 8.3 MG/DL Magnesium Level 1.3 MG/DL Culture Results Microbiology Date/Time Procedure Status Source Growth 04/24/16 00:00 Aerobic Blood Culture - Preliminary Resulted Blood Peripheral Gram Positive Cocci 04/24/16 00:00 Anaerobic Blood Culture - Preliminary Resulted Staphylococcus Epidermidis 04/24/16 00:00 Aerobic Blood Culture - Preliminary Resulted Blood Peripheral NO GROWTH IN 1 DAY 04/24/16 00:00 Anaerobic Blood Culture - Preliminary Resulted Blood Peripheral NO GROWTH IN 1 DAY 04/24/16 01:00 Influenza Types A,B Antigen (VAUGHN) - Final Complete Nasal Washing NEGATIVE FOR FLU A AND B ANTIGEN.... 04/24/16 16:26 Legionella Antigen - Final Complete Urine Random Urine PRESUMPTIVE NEGATIVE FOR LEGIONELLA P... 04/24/16 16:26 Streptococcus pneumoniae Antigen (M - Final Complete Urine Random Urine PRESUMPTIVE NEGATIVE FOR STREPTOCOCCU... 04/25/16 21:21 Aerobic Blood Culture Received Blood Peripheral Pending 04/25/16 21:21 Anaerobic Blood Culture Received Blood Peripheral Pending 04/25/16 21:25 Aerobic Blood Culture Received Blood Peripheral Pending 04/25/16 21:25 Anaerobic Blood Culture Received Blood Peripheral Pending Administered Medications Medications (Trade) Dose Ordered Sig/Matt Route PRN Reason Start Time Stop Time Status Last Admin Dose Admin IV Flush (NS Flush) 2 ml BID IVF 04/24/16 09:00 04/25/16 21:18 Aspirin (Aspirin Chew) 81 mg DAILY CHEW 04/24/16 13:15 04/26/16 08:06 Budesonide/ Formoterol Fumarate (Symbicort 80-4.5 Mcg Inh) 2 puff Q12HR INH 04/24/16 13:15 04/26/16 08:06 Clopidogrel Bisulfate (Plavix) 75 mg DAILY PO 04/24/16 13:15 04/26/16 08:06 Gabapentin (Neurontin) 300 mg TID PO 04/24/16 18:00 04/26/16 08:06 Acetaminophen/ Hydrocodone Bitart ([place] 7.5-325 Mg) 1 tab Q6H PRN PO PAIN 3-10 04/24/16 13:15 04/25/16 10:14 Levothyroxine Sodium (Synthroid) 50 mcg DAILY@06 PO 04/25/16 06:00 04/26/16 05:47 Pantoprazole Sodium (Protonix) 20 mg DAILY PO 04/25/16 09:00 04/26/16 08:06 Ondansetron HCl (Zofran Inj) 4 mg Q6H PRN IV nausea 04/24/16 13:15 04/25/16 14:47 Temazepam 15 mg 15 mg HS PRN PO insominia 04/24/16 13:45 04/25/16 22:18 Potassium Chloride/Sodium Chloride 1,000 ml @ 85 mls/hr [id number] IV 04/24/16 13:45 04/26/16 03:09 Vancomycin HCl/ Sodium Chloride (Vancomycin Inj/ NS 250 ml Inj) 258 ml @ 258 mls/hr Q12H IV 04/25/16 14:00 04/26/16 03:09 Lorazepam (Ativan) 0.5 mg Q6H PRN PO anxiety 04/26/16 08:45 04/26/16 09:00 Objective Remarks GENERAL: Chronically ill appearing female, sitting up in bed in nad. SKIN: Warm and dry. +alopecia HEAD: Normocephalic. EYES: No injection or drainage. NECK: Supple, trachea midline. CARDIOVASCULAR: Regular rate and rhythm RESPIRATORY: Breath sounds equal bilaterally. No accessory muscle use. GASTROINTESTINAL: Abdomen soft, non-tender, nondistended. EXTREMITIES: No cyanosis NEUROLOGICAL: awake and alert, normal speech. moving extremities. Assessment/Plan Problem List: (1) Leukocytosis Status: Acute Plan: Neulasta on 04/11/16 --BC--1 positive for staph epidermis, contaminant? --on Vanco (2) Squamous cell carcinoma of head and neck Status: Acute Plan: --will place chemo on hold. possibly plan to give immunotherapy at some point once discharged February 2014--diagnosed and rec'd carboplatin and Taxol+ concurrent radiation July 2014--completed chemo/radiation --Remission--- October 2015--found to have lung mets, biopsy proven (again squamous cell carcinoma consistent with H&N) --Carbo/Taxol x 7 cycles --last cycle on Apr.11. rec'd Neulasta on body injector on Apr.11 (3) Thrombocytopenia Status: Chronic Plan: --d/t chemo, monitor transfuse as needed (4) Symptomatic anemia Status: Chronic Plan: --d/t chemo --s/p 1 unit pRBC during this admission--reportedly her symptoms of dyspnea improved s/p transfusion. Assessment 65y/o female with head and neck cancer, admitted with aspiration w/ + BC. h/o Head and neck cancer diagnosed in February 2014. She was found to have lung metastasis in September 2015. Anxiety disorder. DVT of the right lower extremity. Hypothyroidism Plan 1. await repeat blood cultures--elevated WBC could be d/t Neulasta, or aspiration PNA 2. continue abx 3. monitor CBC Attending Statement The exam, history, and the medical decision-making described in the above note were completed with the assistance of the mid-level provider. I reviewed and agree with the findings presented. I attest that I had a [id number] encounter with the patient on the same day, and personally performed and documented my assessment and findings in the medical record. Feeling better after blood transfusion. I think her symptoms are mostly due to the chemotherapy effects and anemia. The leukocytosis is likely due to neulasta. The positive bloodc culture may be contaminant. Reviewed her CT and there is no clear progression of disease. Continue supportive care. She is too weak to continue chemotherapy at this time. Problem Qualifiers (1) Leukocytosis: Qualified Code: D72.829 - Leukocytosis, unspecified type Kathie Beard Apr 26, 2016 10:49 Hai Monahan MD Apr 26, 2016 17:40
[2016-04-26] MEDS ORDERED: IOHEXOL 350 MG/ML 50 ML BTL (for RAD DIAG) IV ONE (11:34)
--- NOTE | 2016-04-26 11:34 | PD.RAD ---
Post Procedure Progress Note Pre Procedure Diagnosis: (1) Metastatic squamous cell carcinoma to lung Post Procedure Diagnosis: (1) Metastatic squamous cell carcinoma to lung Procedure Date: Apr 26, 2016 Supervising Radiologist: Steve Bone Proceduralist/Assist: Pily Escalante, RT(R), Merline Fernandez RT(R)() Plan of Activity Patient to Unit: Nursing Unit Patient Condition: Fair See PACS Report for procedural detail/treatment Central Venous Access Device Procedure 1 Right Infusaport Evaluation single lumen (fibrin sheath present good position) Steve Bone MD Apr 26, 2016 11:34
[2016-04-26] MEDS: RESP: ALBUTEROL 2.5 MG/IPRATROPIUM 0.5 MG NEB (PRN) NEB (12:21)
--- NOTE | 2016-04-26 14:32 | RADRPT ---
EXAM DATE/TIME: 04/26/2016 11:24 [facility] COMPARISON: No previous studies available for comparison. INDICATIONS : Patient is in need of an evaluation of existing Infusaport due to non aspiration. MEDICAL HISTORY : History of metstatic squamous cell head and neck cancer with metastases to lungs, DVT of lower extrem ities, PVD, hypothyroidism, anxiety. SURGICAL HISTORY : History of port placement, bilateral lower extremity stent placement, neck mass biopsy, colonoscopy, endoscopy, right hand and wrist surgery, tonsillectomy, D and C. ENCOUNTER: Initial ACUITY: 1 day PAIN SCORE: 0/10 FLUORO TIME: 0.44 minutes CONTRAST: 9 cc Omnipaque (iohexol) 350 ACCESS: Right internal jugular vein MEDICATION(S): 1.) 2 mg TPA IV PROCEDURE : 1. Access of [id number]. 2. Port patency injection. The risks, benefits and alternatives to the procedure were explained and verbal and written consent w as obtained. The patient was placed supine. The port was prepped in sterile fashion. Full sterile t echnique was used, including cap, mask, sterile gloves and gown, and a large sterile sheet. Hand hyg iene and 2% chlorhexidine prep was utilized per protocol for cutaneous antisepsis with appropriate dr y time for site.The previously placed port was accessed and positive contrast was injected for evalua tion. Injection demonstrates position within the vein no fibrin sheath is present. The catheter can BE injected but no aspiration is possible. CONCLUSION: 1. Fibrin sheath surrounding catheter tip. TPA is to be infused Steve Bone MD on April 26, 2016 at 14:30 Board Certified Radiologist. This report was verified electronically.
[2016-04-26 15:26] LABS: BICARBONATE 29.4 MEQ/L (21.0-32.0); MAGNESIUM 1.3 MG/DL (1.5-2.5); POTASSIUM 3.5 MEQ/L (3.5-5.1)
[2016-04-26 16:00] VITALS: BP 133/81; PULSE 92; RESP 20; TEMP 97.6; O2SAT 100
[2016-04-26] MEDS ORDERED: 3% SALINE INJ 250 ML IV ONE ×2 (16:00→21:00)
[2016-04-26] MEDS: MAGNESIUM SULFATE 1 GM PREMIX 100 ML IV SCH ×2 (16:47→16:48)
[2016-04-26 20:00] VITALS: BP 151/94; PULSE 102; RESP 22; TEMP 99; O2SAT 96
[2016-04-26] MEDS: ACETAMINOPHEN/HYDROcodone 325 MG/7.5 MG TAB PO PRN (21:14)
[2016-04-26] MEDS: TEMAZEPAM 15 MG CAP PO PRN (21:14)
[2016-04-26] MEDS: SODIUM CHLORIDE 0.9% FLUSH 5 ML FLUSH IVF PRN (21:16)
[2016-04-26] MEDS: SODIUM CHLORIDE 1 GRAM TAB PO SCH (21:20)
--- NOTE | 2016-04-26 21:47 | HHI.PR ---
Subjective Remarks pt had some agitation this morning family was worried she has etoh abuse problems pt only admits to 2 beers per day. Objective Vitals heart reg lung cta abd s/nt ext no edema Vital Signs Date Time Temp Pulse Resp B/P Pulse Ox O2 Delivery O2 Flow Rate FiO2 04/26/16 20:00 99.0 102 22 151/94 96 04/26/16 16:00 97.6 92 20 133/81 100 04/26/16 08:00 97.8 104 19 136/78 100 04/26/16 04:00 97.7 106 20 138/70 97 04/26/16 00:00 98.0 93 16 160/83 95 04/25/16 04/25/16 04/26/16 15:00 23:00 07:00 Intake Total 1580 ml 800 ml 1120 ml Output Total 1200 ml 300 ml 2000 ml Balance 380 ml 500 ml -880 ml Intake Oral 720 ml 120 ml 420 ml IV Total 860 ml 680 ml 700 ml Output Urine Total 1200 ml 300 ml 2000 ml # Bowel Movements 0 0 0 Result Diagram: 04/26/16 0457 04/26/161999 Imaging Last Impressions Chest X-Ray 04/23/162328 Signed Impressions: Service Date/Time: Saturday, April 23, 2016 23:58 - CONCLUSION: The lungs are clear. Jorge Philip MD CT Angiography 04/23/162328 Signed Impressions: Service Date/Time: Sunday, April 24, 2016 01:23 - CONCLUSION: 1. The study is negative for pulmonary embolism. 2. Known malignancy with 3 parenchymal opacities, the largest medial right costophrenic angle measuring 1.9 cm. 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 Monahan - Pt was admitted with increased SOB and nonproductive cough. - CXR was negative. - CTA (04/24/16) --> The study is negative for pulmonary embolism. Known malignancy with 3 parenchymal opacities, the largest medial right costophrenic angle measuring 1.9 cm. - evaluation shows oropharyngeal penetration and aspiration - blood cx 2/ staph epi. elevation of wbc...?true infection vs contamination. last neulasta on 04/11. -etoh overuse and risk for w/d -now with hyponatremia probably siadh d/c ns. gentle 3 percent and recheck. serum/urine osmols and urine na fluid restrict modified diet ativan prn consulted oncology consult ID to help determine if blood cx contaminant. she does have port. will get cx from port. (2) Dyspnea Status: Acute Plan: see above - (3) Sacral decubitus ulcer, stage II Status: Acute Plan: - Wound care consulted and they have made recommendations for dressing changes QOD and rotating the pt to keep her off the pressure ulcer. - Wave bed requested (4) Symptomatic anemia Status: Acute Plan: - Pt has had issues with anemia related to her chemo - No noted active bleeding issues - Pt transfused with 1 unit PRBCs in the ER. - H/H slight improved today - Pt notably macrocytic, may be due to nutritional deficiency with poor po intake - Check B12 and Folate levels (5) Thrombocytopenia Status: Chronic Plan: - Also noted to be related to her chemo - Monitor (6) Tobacco abuse disorder Status: Chronic Plan: - Tobacco cessation (7) Hypertension Status: Chronic Plan: - Stable. Problem Qualifiers (1) Dyspnea: Qualified Code: R06.02 - Shortness of breath Kobi Mac MD Apr 26, 2016 21:47
[2016-04-27] VITALS (10 sets, daily range): BP systolic 50–139; BP diastolic 50–82; PULSE 80–110; RESP 18–22; TEMP 97.2–98.6; O2SAT 94–100
[2016-04-27] MEDS: RESP: ALBUTEROL 2.5 MG/IPRATROPIUM 0.5 MG NEB (PRN) NEB (00:52)
[2016-04-27] MEDS ORDERED: FUROSEMIDE 20 MG/2 ML VIAL IV PUSH SCH (01:00)
[2016-04-27] MEDS ORDERED: RESP: ALBUTEROL 2.5 MG/IPRATROPIUM 0.5 MG NEB (SCH) NEB (01:00)
[2016-04-27] MEDS: SODIUM CHLORIDE 0.9% FLUSH 5 ML FLUSH IVF PRN ×2 (01:14→13:30)
[2016-04-27 01:38] LABS: AUTOMATED NEUTROPHIL # 30.8 TH/MM3 (1.8-7.7); BASOPHIL # 0.1 TH/MM3 (0-0.2); BASOPHIL % 0.2 % (0.0-2.0); EOSINOPHIL % 0.1 % (0.0-4.0); HEMATOCRIT 28.3 % (35.0-46.0); LYMPH % 1.8 % (9.0-44.0); LYMPHOCYTE # 0.6 TH/MM3 (1.0-4.8); MEAN CELL VOLUME 104.8 FL (80.0-100.0); MEAN CORPUSCULAR HEMOGLOBIN 35.7 PG (27.0-34.0); MONO % 7.1 % (0.0-8.0); NEUT % 90.8 % (16.0-70.0); PLATELET COUNT 138 TH/MM3 (150-450); RED CELL DISTRIBUTION WIDTH 27.7 % (11.6-17.2)
[2016-04-27 01:40] LABS: HEMO FLAGS AUTO DIFF
[2016-04-27] MEDS ORDERED: PHARMACY ORDERED LAB XX ONE (01:45)
[2016-04-27 01:51] LABS: VANCOMYCIN TROUGH 5.8 MCG/ML (5.0-10.0)
[2016-04-27] MEDS: VANCOMYCIN INJ 800 MG in SODIUM CHLOR 0.9% 250 ML INJ 250 ML IV SCH (01:53)
[2016-04-27] MEDS ORDERED: DEMECLOCYCLINE HCL 150 MG TAB PO ONE (02:15)
[2016-04-27 02:36] LABS: BANDS 11 % (0-6); MYELOCYTES 1 % (0-0); NEUTROPHIL # MANUAL DIFF 30.9 TH/MM3 (1.8-7.7); PLATELET ESTIMATE SMEAR LOW (NORMAL); PLATELET MORPHOLOGY NORMAL (NORMAL); POLYS (SEG NEUTROPHILS) 79 % (16-70); SCAN/DIFF FINAL DIFF MANUAL; WBC DIFF SAMPLE 100
[2016-04-27 02:38] LABS: POLYCHROMASIA 2.3 % (0.0-1.9)
--- NOTE | 2016-04-27 02:38 | RADRPT ---
EXAM DATE/TIME: 04/27/2016 02:12 [place] COMPARISON: CHEST SINGLE AP, April 23, 2016, 23:58. INDICATIONS : Short of breath MEDICAL HISTORY : [place], [place] head SURGICAL HISTORY : Infus a port ENCOUNTER: Subsequent ACUITY: 4 - 6 days PAIN SCORE: Non-responsive. LOCATION: Bilateral chest FINDINGS: A single view of the chest demonstrates the lungs to be symmetrically aerated without evidence of mas s, infiltrate or effusion. There is hyperaeration of both lung foreman. The cardiomediastinal contours are unremarkable. Osseous structures are intact. Old healed left-sided rib fractures which are stab le. Right [id number] remains in place. No significant changes. CONCLUSION: No acute disease. No significant change has occurred. Tulio Tellez MD on April 27, 2016 at 2:36 Board Certified Radiologist. This report was verified electronically.
[2016-04-27 02:39] LABS: TOXIC VACUOLATION PRESENT (NONE SEEN)
[2016-04-27] MEDS: LEVOTHYROXINE SODIUM 50 MCG TAB PO SCH (06:08)
[2016-04-27 09:09] LABS: BICARBONATE 28.4 MEQ/L (21.0-32.0)
[2016-04-27] MEDS: PANTOPRAZOLE SOD 20 MG DELAYED RELEASE TAB PO SCH (09:12)
[2016-04-27] MEDS: CLOPIDOGREL 75 MG TAB PO SCH (09:12)
[2016-04-27] MEDS: SODIUM CHLORIDE 1 GRAM TAB PO SCH ×2 (09:12→20:45)
[2016-04-27] MEDS: ASPIRIN 81 MG CHEW TAB CHEW SCH (09:12)
[2016-04-27] MEDS: GABAPENTIN 300 MG CAP PO SCH ×3 (09:12→18:18)
[2016-04-27] MEDS: SODIUM CHLORIDE 0.9% FLUSH 5 ML FLUSH IVF SCH ×2 (09:15→20:44)
[2016-04-27] MEDS: BUDESONIDE-FORMOTEROL 80/4.5 MCG INHALER INH SCH ×2 (09:17→20:44)
[2016-04-27] MEDS ORDERED: TOLVAPTAN 15 MG TAB PO STA (10:01)
--- NOTE | 2016-04-27 10:12 | PD.ONC.PN ---
Subjective Subjective Remarks Afebrile overnight. Pt tells me she was confused overnight and she had to be restrained. She states she feels "pretty good" now. She denies SOB or pain. She is asking what the plan is. Objective Data Date Time Temp Pulse Resp B/P Pulse Ox O2 Delivery O2 Flow Rate FiO2 04/27/16 08:00 97.9 80 19 136/75 98 04/27/16 05:52 100 Simple Mask 4.00 04/27/16 04:00 98.4 91 20 102/62 100 04/27/16 02:00 94 04/27/16 00:56 95 Simple Mask 6.00 04/27/16 00:40 94 Simple Mask 5.00 04/27/16 00:00 98.6 110 22 134/82 94 04/26/16 20:00 99.0 102 22 151/94 96 04/26/16 16:00 97.6 92 20 133/81 100 04/27/16 04/27/16 04/27/16 07:00 15:00 23:00 Intake Total 402 ml 120 ml Output Total 900 ml Balance -498 ml 120 ml Result Diagram: 04/27/16 0109 04/27/16 0832 Laboratory Results Laboratory Tests Test 04/26/16 04/26/16 04/27/16 04/27/16 14:30 20:00 01:00 01:09 Sodium Level 124 MEQ/L 121 MEQ/L 122 MEQ/L Potassium Level 3.5 MEQ/L Chloride Level 84 MEQ/L Carbon Dioxide Level 29.4 MEQ/L Anion Gap 11 MEQ/L Blood Urea Nitrogen 10 MG/DL Creatinine 0.37 MG/DL Estimat Glomerular Filtration 176 ML/MIN Rate Random Glucose 146 MG/DL Calcium Level 8.4 MG/DL Magnesium Level 1.3 MG/DL Thyroid Stimulating Hormone 2.010 uIU/ML 3rd Gen Serum Osmolality 249 MOSM/KG Urine Osmolality 615 MOSM/KG Urine Random Sodium 135 MEQ/L Urine Random Chloride 204 MEQ/L Vancomycin Level Trough 5.8 MCG/ML White Blood Count 34.0 TH/MM3 Red Blood Count 2.70 MIL/MM3 Hemoglobin 9.6 GM/DL Hematocrit 28.3 % Mean Corpuscular Volume 104.8 FL Mean Corpuscular Hemoglobin 35.7 PG Mean Corpuscular Hemoglobin 34.0 % Concent Red Cell Distribution Width 27.7 % Platelet Count 138 TH/MM3 Mean Platelet Volume 9.4 FL Neutrophils (%) (Auto) 90.8 % Lymphocytes (%) (Auto) 1.8 % Monocytes (%) (Auto) 7.1 % Eosinophils (%) (Auto) 0.1 % Basophils (%) (Auto) 0.2 % Neutrophils # (Auto) 30.8 TH/MM3 Lymphocytes # (Auto) 0.6 TH/MM3 Monocytes # (Auto) 2.4 TH/MM3 Eosinophils # (Auto) 0.0 TH/MM3 Basophils # (Auto) 0.1 TH/MM3 CBC Comment AUTO DIFF Differential Total Cells 100 Counted Neutrophils % (Manual) 79 % Band Neutrophils % 11 % Lymphocytes % 1 % Monocytes % 8 % Neutrophils # (Manual) 30.9 TH/MM3 Myelocytes 1 % Differential Comment FINAL DIFF MANUAL Toxic Vacuolation PRESENT Platelet Estimate LOW Platelet Morphology Comment NORMAL Polychromasia 2.3 % Red Cell Morphology Comment NORMAL Test 04/27/16 08:32 Sodium Level 123 MEQ/L Potassium Level 3.0 MEQ/L Chloride Level 82 MEQ/L Carbon Dioxide Level 28.4 MEQ/L Anion Gap 13 MEQ/L Blood Urea Nitrogen 12 MG/DL Creatinine 0.22 MG/DL Estimat Glomerular Filtration 320 ML/MIN Rate Random Glucose 108 MG/DL Calcium Level 8.2 MG/DL Culture Results Microbiology Date/Time Procedure Status Source Growth 04/24/16 16:26 Legionella Antigen - Final Complete Urine Random Urine PRESUMPTIVE NEGATIVE FOR LEGIONELLA P... 04/24/16 16:26 Streptococcus pneumoniae Antigen (M - Final Complete Urine Random Urine PRESUMPTIVE NEGATIVE FOR STREPTOCOCCU... 04/25/16 14:30 Aerobic Blood Culture Received Blood Other Pending 04/25/16 14:30 Anaerobic Blood Culture Received Blood Other Pending 04/25/16 21:21 Aerobic Blood Culture - Preliminary Resulted Blood Peripheral NO GROWTH IN 1 DAY 04/25/16 21:21 Anaerobic Blood Culture - Preliminary Resulted Blood Peripheral NO GROWTH IN 1 DAY 04/25/16 21:25 Aerobic Blood Culture - Preliminary Resulted Blood Peripheral NO GROWTH IN 1 DAY 04/25/16 21:25 Anaerobic Blood Culture - Preliminary Resulted Blood Peripheral NO GROWTH IN 1 DAY Imaging Studies Last 24 hours Impressions Chest X-Ray 04/27/16 0000 Signed Impressions: Service Date/Time: Wednesday, April 27, 2016 02:12 - CONCLUSION: No acute disease. No significant change has occurred. Tulio Tellez MD Administered Medications Medications (Trade) Dose Ordered Sig/Matt Route PRN Reason Start Time Stop Time Status Last Admin Dose Admin IV Flush (NS Flush) 2 ml UNSCH PRN IVF FLUSH AFTER USING IV ACCESS 04/23/16 23:30 04/27/16 01:14 IV Flush (NS Flush) 2 ml BID IVF 04/24/16 09:00 04/27/16 09:15 Aspirin (Aspirin Chew) 81 mg DAILY CHEW 04/24/16 13:15 04/27/16 09:12 Budesonide/ Formoterol Fumarate (Symbicort 80-4.5 Mcg Inh) 2 puff Q12HR INH 04/24/16 13:15 04/27/16 09:17 Clopidogrel Bisulfate (Plavix) 75 mg DAILY PO 04/24/16 13:15 04/27/16 09:12 Gabapentin (Neurontin) 300 mg TID PO 04/24/16 18:00 04/27/16 09:12 Acetaminophen/ Hydrocodone Bitart ([place] 7.5-325 Mg) 1 tab Q6H PRN PO PAIN 3-10 04/24/16 13:15 04/26/16 21:14 Levothyroxine Sodium (Synthroid) 50 mcg DAILY@06 PO 04/25/16 06:00 04/27/16 06:08 Pantoprazole Sodium (Protonix) 20 mg DAILY PO 04/25/16 09:00 04/27/16 09:12 Ondansetron HCl (Zofran Inj) 4 mg Q6H PRN IV nausea 04/24/16 13:15 04/25/16 14:47 Temazepam (Restoril) 15 mg HS PRN PO insominia 04/24/16 13:45 04/26/16 21:14 Lorazepam (Ativan) 0.5 mg Q6H PRN PO anxiety 04/26/16 08:45 04/26/16 14:54 Sodium Chloride (Sodium Chloride) 1 gm BID PO 04/26/16 21:15 04/27/16 09:12 Objective Remarks GENERAL: Chronically ill appearing female, sitting up in bed in nad. SKIN: Warm and dry. +alopecia HEAD: Normocephalic. EYES: No injection or drainage. NECK: Supple, trachea midline. CARDIOVASCULAR: Regular rate and rhythm RESPIRATORY: Breath sounds equal bilaterally. No accessory muscle use. GASTROINTESTINAL: Abdomen soft, non-tender, nondistended. EXTREMITIES: No cyanosis NEUROLOGICAL: awake and alert, normal speech. moving extremities. Assessment/Plan Problem List: (1) Leukocytosis Status: Acute Plan: Neulasta on 04/11/16 --BC on 04/25 show no growth x 1 day. --BC on 04/24 show 1 positive for staph epidermis, likely contaminant. --on Vanco (2) Squamous cell carcinoma of head and neck Status: Acute Plan: --will place chemo on hold. possibly plan to give immunotherapy at some point once discharged February 2014--diagnosed and rec'd carboplatin and Taxol+ concurrent radiation July 2014--completed chemo/radiation --Remission--- October 2015--found to have lung mets, biopsy proven (again squamous cell carcinoma consistent with H&N) --Carbo/Taxol x 7 cycles --last cycle on Apr.11. rec'd Neulasta on body injector on Apr.11 (3) Thrombocytopenia Status: Chronic Plan: --d/t chemo, monitor transfuse as needed (4) Symptomatic anemia Status: Acute Plan: --d/t chemo --s/p 1 unit pRBC during this admission--reportedly her symptoms of dyspnea improved s/p transfusion. (5) Hyponatremia Status: Acute Plan: -- Stable -- Fluid restriction -- Pt started on Sam[place] Assessment 65y/o female with head and neck cancer, admitted with aspiration w/ + BC. h/o Head and neck cancer diagnosed in February 2014. She was found to have lung metastasis in September 2015. Anxiety disorder. DVT of the right lower extremity. Hypothyroidism Plan 1. Repeat blood cultures show no growth x 1 day. Will monitor. 2. CXR shows no aspiration pneumonia. 3. Continue Abx. 4. Monitor labs. Attending Statement The exam, history, and the medical decision-making described in the above note were completed with the assistance of the mid-level provider. I reviewed and agree with the findings presented. I attest that I had a [id number] encounter with the patient on the same day, and personally performed and documented my assessment and findings in the medical record. Episodes of confusion overnight, ?etoh withdrawal. Also has worsening hyponatremia despite 3%saline, most c/w SIADH. Also has increased WBC with sign of toxic granulation , but remains afebrile. BCX is pending. Discussed with , will broaden abx and consult ID. Continue to correct the hyponatremia. Discussed with pt's daughter. Problem Qualifiers (1) Leukocytosis: Qualified Code: D72.829 - Leukocytosis, unspecified type Analisa Campos Apr 27, 2016 10:12 Hai Monahan MD Apr 27, 2016 17:05
[2016-04-27] MEDS ORDERED: POTASSIUM CHLORIDE 20 MEQ CONTROLLED RELEASE TAB PO ONE (10:15)
[2016-04-27] MEDS: ACETAMINOPHEN/HYDROcodone 325 MG/7.5 MG TAB PO PRN (10:36)
--- NOTE | 2016-04-27 10:54 | HHI.PR ---
Subjective Remarks Pt reports that she had increased SOB and a panic attack overnight last night. She was on non-rebreather at 6L but has been taken off and is on RA and saturating in the mid 90's Afebrile Objective Vitals Vital Signs Date Time Temp Pulse Resp B/P Pulse Ox O2 Delivery O2 Flow Rate FiO2 04/27/16 08:00 97.9 80 19 136/75 98 04/27/16 05:52 100 Simple Mask 4.00 04/27/16 04:00 98.4 91 20 102/62 100 04/27/16 02:00 94 04/27/16 00:56 95 Simple Mask 6.00 04/27/16 00:40 94 Simple Mask 5.00 04/27/16 00:00 98.6 110 22 134/82 94 04/26/16 20:00 99.0 102 22 151/94 96 04/26/16 16:00 97.6 92 20 133/81 100 04/26/16 04/26/16 04/27/16 15:00 23:00 07:00 Intake Total 1401 ml 348 ml 402 ml Output Total 800 ml 250 ml 900 ml Balance 601 ml 98 ml -498 ml Intake Oral 600 ml 240 ml 120 ml IV Total 801 ml 108 ml 282 ml Output Urine Total 800 ml 250 ml 900 ml # Bowel Movements 0 0 0 Result Diagram: 04/27/16 0109 04/27/16 0832 Other Results Laboratory Tests Test 04/26/16 04/26/16 04/26/16 04/27/16 04:57 14:30 20:00 01:00 White Blood Count 21.5 TH/MM3 Red Blood Count 2.62 MIL/MM3 Hemoglobin 9.5 GM/DL Hematocrit 27.7 % Mean Corpuscular Volume 105.8 FL Mean Corpuscular Hemoglobin 36.3 PG Mean Corpuscular Hemoglobin 34.3 % Concent Red Cell Distribution Width 28.8 % Platelet Count 85 TH/MM3 Mean Platelet Volume 9.1 FL Neutrophils (%) (Auto) 87.1 % Lymphocytes (%) (Auto) 5.1 % Monocytes (%) (Auto) 7.5 % Eosinophils (%) (Auto) 0.0 % Basophils (%) (Auto) 0.3 % Neutrophils # (Auto) 18.7 TH/MM3 Lymphocytes # (Auto) 1.1 TH/MM3 Monocytes # (Auto) 1.6 TH/MM3 Eosinophils # (Auto) 0.0 TH/MM3 Basophils # (Auto) 0.1 TH/MM3 CBC Comment AUTO DIFF Differential Total Cells 100 Counted Neutrophils % (Manual) 81 % Band Neutrophils % 7 % Lymphocytes % 4 % Monocytes % 7 % Neutrophils # (Manual) 19.1 TH/MM3 Myelocytes 1 % Differential Comment FINAL DIFF MANUAL Platelet Estimate LOW Platelet Morphology Comment NORMAL Sodium Level 129 MEQ/L 124 MEQ/L 121 MEQ/L 122 MEQ/L Potassium Level 3.3 MEQ/L 3.5 MEQ/L Chloride Level 91 MEQ/L 84 MEQ/L Carbon Dioxide Level 29.4 MEQ/L 29.4 MEQ/L Anion Gap 9 MEQ/L 11 MEQ/L Blood Urea Nitrogen 5 MG/DL 10 MG/DL Creatinine 0.28 MG/DL 0.37 MG/DL Estimat Glomerular Filtration 243 ML/MIN 176 ML/MIN Rate Random Glucose 91 MG/DL 146 MG/DL Calcium Level 8.3 MG/DL 8.4 MG/DL Magnesium Level 1.3 MG/DL 1.3 MG/DL Thyroid Stimulating Hormone 2.010 uIU/ML 3rd Gen Serum Osmolality 249 MOSM/KG Urine Osmolality 615 MOSM/KG Urine Random Sodium 135 MEQ/L Urine Random Chloride 204 MEQ/L Vancomycin Level Trough 5.8 MCG/ML Test 04/27/16 04/27/16 01:09 08:32 White Blood Count 34.0 TH/MM3 Red Blood Count 2.70 MIL/MM3 Hemoglobin 9.6 GM/DL Hematocrit 28.3 % Mean Corpuscular Volume 104.8 FL Mean Corpuscular Hemoglobin 35.7 PG Mean Corpuscular Hemoglobin 34.0 % Concent Red Cell Distribution Width 27.7 % Platelet Count 138 TH/MM3 Mean Platelet Volume 9.4 FL Neutrophils (%) (Auto) 90.8 % Lymphocytes (%) (Auto) 1.8 % Monocytes (%) (Auto) 7.1 % Eosinophils (%) (Auto) 0.1 % Basophils (%) (Auto) 0.2 % Neutrophils # (Auto) 30.8 TH/MM3 Lymphocytes # (Auto) 0.6 TH/MM3 Monocytes # (Auto) 2.4 TH/MM3 Eosinophils # (Auto) 0.0 TH/MM3 Basophils # (Auto) 0.1 TH/MM3 CBC Comment AUTO DIFF Differential Total Cells 100 Counted Neutrophils % (Manual) 79 % Band Neutrophils % 11 % Lymphocytes % 1 % Monocytes % 8 % Neutrophils # (Manual) 30.9 TH/MM3 Myelocytes 1 % Differential Comment FINAL DIFF MANUAL Toxic Vacuolation PRESENT Platelet Estimate LOW Platelet Morphology Comment NORMAL Polychromasia 2.3 % Red Cell Morphology Comment NORMAL Sodium Level 123 MEQ/L Potassium Level 3.0 MEQ/L Chloride Level 82 MEQ/L Carbon Dioxide Level 28.4 MEQ/L Anion Gap 13 MEQ/L Blood Urea Nitrogen 12 MG/DL Creatinine 0.22 MG/DL Estimat Glomerular Filtration 320 ML/MIN Rate Random Glucose 108 MG/DL Calcium Level 8.2 MG/DL Imaging Last Impressions Chest X-Ray 04/23/162328 Signed Impressions: Service Date/Time: Saturday, April 23, 2016 23:58 - CONCLUSION: The lungs are clear. Jorge Philip MD CT Angiography 04/23/162328 Signed Impressions: Service Date/Time: Sunday, April 24, 2016 01:23 - CONCLUSION: 1. The study is negative for pulmonary embolism. 2. Known malignancy with 3 parenchymal opacities, the largest medial right costophrenic angle measuring 1.9 cm. 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 Monahan - Pt was admitted with increased SOB and nonproductive cough. - CXR was negative. - CTA (04/24/16) --> The study is negative for pulmonary embolism. Known malignancy with 3 parenchymal opacities, the largest medial right costophrenic angle measuring 1.9 cm. - MBS evaluation shows oropharyngeal penetration and aspiration - Pts daughter, who is a speech therapist, requested that the pts diet be soft foods with nectar thickened liquids knowing that the pt is chronically aspirating, which was for the comfort of the pt knowing she is fairly end stage. - Blood cx 05/07 staph epi. and elevation of wbc...?true infection vs contamination. Pts last dose of Neulasta was on 04/11. - Pt also a daily EtOH user and risk for w/d - She developed significant hyponatremia probably related to SIADH - Pt was given gentle 3% NS x 2 bags of 250mL but labs continued to trend down. - Serum osmols 246m Urine Osmols 615 and urine Na+ 135 - Fluid restrict - We will give Tolvaptan x one dose now - Repeat labs this afternoon - Cont. modified diet - Ativan PRN - ID to help determine if blood cx contaminant. she does have port. - Culture from port with NGTD (2) Dyspnea Status: Acute Plan: - See above (3) Sacral decubitus ulcer, stage II Status: Acute Plan: - Wound care consulted and they have made recommendations for dressing changes QOD and rotating the pt to keep her off the pressure ulcer. - Wave bed requested (4) Symptomatic anemia Status: Acute Plan: - Pt has had issues with anemia related to her chemo - No noted active bleeding issues - Pt transfused with 1 unit PRBCs in the ER. - H/H slight improved today - Pt notably macrocytic, may be due to nutritional deficiency with poor po intake - Check B12 and Folate levels (5) Thrombocytopenia Status: Chronic Plan: - Also noted to be related to her chemo - Monitor (6) Tobacco abuse disorder Status: Chronic Plan: - Tobacco cessation (7) Hypertension Status: Chronic Plan: - Stable. Assessment and Plan Patient examined. Assessment and plan formulated with Bethany Quezada PA-C. I agree with the above. scc h/n to lung. undergoing chemo with dr Monahan. aspiration due to oropharyngeal phase penetration. ct showed some swelling probably from radiation. mod diet. no peg per pt. 05/07 blood cx staph epi. 05/05 from port ngtd. ?contaminant. has been on vanco. rising wbc. discussed with dr Monahan. He doesn't think the neulasta on 04/11 is causing the rise. recc giving zosyn until seen by ID. siadh and hyponatremia. dropped on 3%. gave dose tolvaptan and recheck today. replace kcl. had some ativan and pt only says 2 beers per day. etoh abuse in past. long talk with pt and family at bedside. alternate code. Halicat this AM for hypoxia. now on room air. Problem Qualifiers (1) Dyspnea: Qualified Code: R06.02 - Shortness of breath Bethany Quezada Apr 27, 2016 10:54 Kobi Mac MD Apr 27, 2016 15:06
[2016-04-27] MEDS: PIPERACIL-TAZO 3.375 GM PREMIX 50 ML IV SCH ×3 (13:30→21:33)
[2016-04-27] MEDS: VANCOMYCIN INJ 750 MG in SODIUM CHLOR 0.9% 250 ML INJ 250 ML IV SCH ×2 (16:18→20:00)
--- NOTE | 2016-04-27 17:40 | PD.ID.CON ---
History of Present Illness Service ID Consult Requested By Reason for Consult Evaluation and Mment of Sepsis in patient with head neck cancer. 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 She underwent Carboplatin and Taxol chemotherapy followed by radiation which she reportedly was completed in Feb 2015. She was considered to be in remission but in October of last year she was found to have lung metastasis, biopsy-proven. The biopsy showed squamous cell carcinoma consistent with head and neck cancer. She has been on carboplatin and Taxol chemotherapy and has completed seven cycles of chemotherapy so far. The last chemotherapy was on April 11, 2016. The patient was in her usual status of health up until last week when she developed cough and shortness of breath. The symptoms were getting worse and so she decided to come to the emergency room. Patient had fever on admission with WBC count was 26,000 with bandemia. She had a CT angiogram of the chest which she did not show any pulmonary embolism but shows the known metastatic disease to the lung. Subsequently, the patient had a swallowing study done which showed that she is having aspiration. ID was consulted due to concern for sepsis, coag neg bacteremia in IC pt with port. Review of Systems Constitutional: COMPLAINS OF: Fatigue, Fever, Chills, DENIES: Diaphoretic episodes, Weight gain, Weight loss, Dizziness, Change in appetite, Night Sweats Endocrine: DENIES: Abnorml menstrual pattern, Heat/cold intolerance, Polydipsia , Polyuria, Polyphagia Eyes: DENIES: Blurred vision, Diplopia, Eye inflammation, Eye pain, Vision loss , Photosensitivity, Double Vision Ears, nose, mouth, throat: DENIES: Tinnitus, Hearing loss, Vertigo, Nasal discharge, Oral lesions, Throat pain, Hoarseness, Ear Pain, Running Nose, Epistaxis, Sinus Pain, Toothache, Odynophagia Respiratory: COMPLAINS OF: Shortness of breath, DENIES: Apneas, Cough, Snoring , Wheezing, Hemoptysis, Sputum production Cardiovascular: DENIES: Chest pain, Palpitations, Syncope, Dyspnea on Exertion , PND, Lower Extremity Edema, Orthopnea, Claudication Gastrointestinal: DENIES: Abdominal pain, Black stools, Bloody stools, Constipation, Diarrhea, Nausea, Vomiting, Difficulty Swallowing, Anorexia Genitourinary: DENIES: Abnormal vaginal bleeding, Dysmenorrhea, Dyspareunia, Sexual dysfunction, Urinary frequency, Urinary incontinence, Urgency, Hematuria , Dysuria, Nocturia, Vaginal discharge Musculoskeletal: DENIES: Joint pain, Muscle aches, Stiffness, Joint Swelling, Back pain, Neck pain Integumentary: DENIES: Abnormal pigmentation, Pruritus, Rash, Nail changes, Breast masses, Breast skin changes, Nipple discharge Hematologic/lymphatic: DENIES: Bruising, Lymphadenopathy Immunologic/allergic: DENIES: Eczema, Urticaria Neurologic: DENIES: Abnormal gait, Headache, Localized weakness, Paresthesias, Seizures, Speech Problems, Tremor, Poor Balance Past Family Social History Allergies: Coded Allergies: No Known Allergies (Verified , 07/09/15) Past Medical History 1. Head and neck cancer diagnosed in February 2014. She was found to have lung metastasis in September 2015. 2. Anxiety disorder. 3. DVT of the right lower extremity. 4. Hypothyroidism. Past Surgical History 1. Bilateral lower extremity stent placement. 2. Neck mass biopsy. 3. Upper endoscopy. 4. Colonoscopy. 5. Right hand surgery. 6. Tonsillectomy. 7. [id number] placement. Reported Medications Reported Meds & Active Scripts Active Reported Phenergan (Promethazine HCl) 25 Mg Tab 25 Mg PO Q6H PRN Prochlorperazine Maleate 10 Mg Tab 10 Mg PO Q6H PRN Zofran (Ondansetron HCl) 8 Mg Tab 8 Mg PO TID Omeprazole 20 Mg Tab 20 Mg PO DAILY Levothyroxine (Levothyroxine Sodium) 50 Mcg Tab 50 Mcg PO DAILY [place] (Hydrocodone-Acetaminophen) 7.5-325 mg Tab 1 Tab PO Q6H PRN Gabapentin 300 Mg Cap 300 Mg PO TID Plavix (Clopidogrel Bisulfate) 75 Mg Tab 75 Mg PO DAILY Symbicort Inh (Budesonide/Formoterol Fumarate) 80-4.5 Mcg/Act Aero 2 Puff INH Q12HR Aspirin 81 Mg Chew 81 Mg CHEW DAILY Active Ordered Medications Current Medications Medications (Trade) Dose Ordered Sig/Matt Route Start Time Stop Time Status Last Admin (NS Flush) 2 ml UNSCH PRN IVF 04/23/16 23:30 04/27/16 13:30 (NS Flush) 2 ml BID IVF 04/24/16 09:00 04/27/16 20:44 (NS Flush) 2 ml UNSCH PRN IVF 04/24/16 03:00 (Aspirin Chew) 81 mg DAILY CHEW 04/24/16 13:15 04/27/16 09:12 (Symbicort 80-4.5 Mcg Inh) 2 puff Q12HR INH 04/24/16 13:15 04/27/16 20:44 (Plavix) 75 mg DAILY PO 04/24/16 13:15 04/27/16 09:12 (Neurontin) 300 mg TID PO 04/24/16 18:00 04/27/16 18:18 ([place] 7.5-325 Mg) 1 tab Q6H PRN PO 04/24/16 13:15 04/27/16 10:36 (Synthroid) 50 mcg DAILY@06 PO 04/25/16 06:00 04/27/16 06:08 (Protonix) 20 mg DAILY PO 04/25/16 09:00 04/27/16 09:12 (Compazine) 10 mg Q6H PRN PO 04/24/16 13:15 (Tylenol) 650 mg Q4H PRN PO 04/24/16 13:15 (Zofran Inj) 4 mg Q6H PRN IV 04/24/16 13:15 04/25/16 14:47 Temazepam 15 mg 15 mg HS PRN PO 04/24/16 13:45 04/27/16 21:32 (Vancomycin Consult Pharmacy) 0 ml @ 0 mls/hr UNSCH OTHER 04/25/16 10:00 (Ativan) 0.5 mg Q6H PRN PO 04/26/16 08:45 04/26/16 14:54 Sodium Chloride 1 gm 1 gm BID PO 04/26/16 21:15 04/27/16 20:45 Piperacillin Sod/ Tazobactam Sod 50 ml @ 100 mls/hr Q6H IV 04/27/16 10:00 04/27/16 21:33 (Vancomycin Inj/ NS 250 ml Inj) 257.5 ml @ 258 mls/hr Q8H IV 04/27/16 12:00 04/27/16 20:00 Miscellaneous Information SPECIFIC LAB TO BE DRAWN:VANCOMYCIN TROUGH DATE TO... ONCE ONCE XX 04/28/16 11:45 04/28/16 11:46 Family History reviewed and NC to current ID problems. Social History Drinks couple of beers a day. Still smokes a lot. No reported IVDA. Lives at home with significant other. Has a daughter who was in room at time of visit. Physical Exam Vital Signs Vital Signs Date Time Temp Pulse Resp B/P Pulse Ox O2 Delivery O2 Flow Rate FiO2 04/27/16 16:00 98.6 86 19 50/ 98 04/27/16 11:50 98.2 90 20 80/50 97 04/27/16 08:00 97.9 80 19 136/75 98 04/27/16 05:52 100 Simple Mask 4.00 04/27/16 04:00 98.4 91 20 102/62 100 04/27/16 02:00 94 04/27/16 00:56 95 Simple Mask 6.00 04/27/16 00:40 94 Simple Mask 5.00 04/27/16 00:00 98.6 110 22 134/82 94 04/26/16 20:00 99.0 102 22 151/94 96 Physical Exam GENERAL: This is a well-nourished, well-developed patient, in no apparent distress. SKIN: No rashes, ecchymoses or lesions. Cool and dry. HEAD: Atraumatic. Normocephalic. No temporal or scalp tenderness. EYES: Pupils equal round and reactive. Extraocular motions intact. No scleral icterus. No injection or drainage. ENT: Airway patent. Dentures noted. No oral thrush noted. NECK: Trachea midline. Supple, nontender, no meningeal signs. CARDIOVASCULAR: HS audible. RESPIRATORY: Clear to auscultation. Breath sounds equal bilaterally. GASTROINTESTINAL: Abdomen soft, non-tender, nondistended. MUSCULOSKELETAL: Extremities without clubbing, cyanosis, or edema. No joint tenderness, effusion, or edema noted. No calf tenderness. Negative Homans sign bilaterally. NEUROLOGICAL: Awake and alert. Grossly nonfocal sacral area with scarring noted. No s/o infection or ulcers noted. Psych: pleasant, cooperative IV line sites with no e/o infection. Port site with no e/o infection. Laboratory Laboratory Tests Test 04/26/16 04/27/16 04/27/16 04/27/16 20:00 01:00 01:09 08:32 Sodium Level 121 122 123 Serum Osmolality 249 Urine Osmolality 615 Urine Random Sodium 135 Urine Random Chloride 204 Vancomycin Level Trough 5.8 White Blood Count 34.0 Red Blood Count 2.70 Hemoglobin 9.6 Hematocrit 28.3 Mean Corpuscular Volume 104.8 Mean Corpuscular Hemoglobin 35.7 Mean Corpuscular Hemoglobin 34.0 Concent Red Cell Distribution Width 27.7 Platelet Count 138 Mean Platelet Volume 9.4 Neutrophils (%) (Auto) 90.8 Lymphocytes (%) (Auto) 1.8 Monocytes (%) (Auto) 7.1 Eosinophils (%) (Auto) 0.1 Basophils (%) (Auto) 0.2 Neutrophils # (Auto) 30.8 Lymphocytes # (Auto) 0.6 Monocytes # (Auto) 2.4 Eosinophils # (Auto) 0.0 Basophils # (Auto) 0.1 CBC Comment AUTO DIFF Differential Total Cells 100 Counted Neutrophils % (Manual) 79 Band Neutrophils % 11 Lymphocytes % 1 Monocytes % 8 Neutrophils # (Manual) 30.9 Myelocytes 1 Differential Comment FINAL DIFF MANUAL Toxic Vacuolation PRESENT Platelet Estimate LOW Platelet Morphology Comment NORMAL Polychromasia 2.3 Red Cell Morphology Comment NORMAL Potassium Level 3.0 Chloride Level 82 Carbon Dioxide Level 28.4 Anion Gap 13 Blood Urea Nitrogen 12 Creatinine 0.22 Estimat Glomerular Filtration 320 Rate Random Glucose 108 Calcium Level 8.2 Date/Time Procedure Status Source Growth 04/25/16 21:25 Aerobic Blood Culture - Preliminary Resulted Blood Peripheral NO GROWTH IN 2 DAYS 04/25/16 21:25 Anaerobic Blood Culture - Preliminary Resulted Blood Peripheral NO GROWTH IN 2 DAYS 04/24/16 16:26 Legionella Antigen - Final Complete Urine Random Urine PRESUMPTIVE NEGATIVE FOR LEGIONELLA P... 04/24/16 16:26 Streptococcus pneumoniae Antigen (M - Final Complete Urine Random Urine PRESUMPTIVE NEGATIVE FOR STREPTOCOCCU... 04/24/16 01:00 Influenza Types A,B Antigen (VAUGHN) - Final Complete Nasal Washing NEGATIVE FOR FLU A AND B ANTIGEN.... 04/24/16 00:00 Aerobic Blood Culture - Final Complete Blood Peripheral Staph Sp Coagulase Negative 04/24/16 00:00 Anaerobic Blood Culture - Final Complete Staphylococcus Epidermidis Result Diagram: 04/27/16 0109 04/27/16 0832 Imaging Last Impressions Chest X-Ray 04/27/16 0000 Signed Impressions: Service Date/Time: Wednesday, April 27, 2016 02:12 - CONCLUSION: No acute disease. No significant change has occurred. Tulio Tellez MD Venous Access Device Injection 04/26/16 0000 Signed Impressions: Service Date/Time: Tuesday, April 26, 2016 11:24 - CONCLUSION: 1. Fibrin sheath surrounding catheter tip. TPA is to be infused tSeve Bone MD Neck CT 04/25/16 0000 Signed Impressions: Service Date/Time: Monday, April 25, 2016 21:36 - CONCLUSION: 1. Mild soft tissue swelling in the supraglottic and glottic region that is fairly symmetric and of uncertain etiology but possibly related to prior radiation. Previous left supraclavicular mass has nearly completely resolved. No new adenopathy in the neck. [id number] present. See above discussion. Joey Swenson MD Modified Barium Swallow 04/25/16 0000 Signed Impressions: Service Date/Time: Monday, April 25, 2016 00:00 - CONCLUSION: Please see speech pathology report Tyrese Rodriguez MD CT Angiography 04/23/16 2329 Signed Impressions: Service Date/Time: Sunday, April 24, 2016 01:23 - CONCLUSION: 1. The study is negative for pulmonary embolism. 2. Known malignancy with 3 parenchymal opacities, the largest medial right costophrenic angle measuring 1.9 cm. Jorge Philip MD Assessment and Plan Assessment and Plan Sepsis in Immunecompromised patient. May not have typical signs of infection/ sepsis. Aspiration Pneumonia. Patient failed swallow eval and consumes significant amount alcohol along with pain control narcotics. These along with altered anatomy of her airway puts her at high risk for infection. Staph epiderm bacteremia in a pt with port. Blood cultures may be from port but not labeled such per patient. Head neck cancer with lung mets High grade leucocytosis. Recs: Continue Zosyn IV Continue Vanco IV (target 15-20) Collect blood culture from port. Follow cultures Follow clinically. d/w patient, daughter and other family in room. Cristela Poole MD Apr 27, 2016 17:40
[2016-04-27 20:01] LABS: BICARBONATE 30.7 MEQ/L (21.0-32.0); POTASSIUM 3.6 MEQ/L (3.5-5.1)
[2016-04-27] MEDS: TEMAZEPAM 15 MG CAP PO PRN (21:32)
[2016-04-28] MEDS: PIPERACIL-TAZO 3.375 GM PREMIX 50 ML IV SCH ×4 (03:12→21:10)
[2016-04-28] MEDS: VANCOMYCIN INJ 750 MG in SODIUM CHLOR 0.9% 250 ML INJ 250 ML IV SCH ×2 (03:51→11:49)
[2016-04-28] MEDS: LEVOTHYROXINE SODIUM 50 MCG TAB PO SCH (03:51)
[2016-04-28 04:00] VITALS: BP 100/61; PULSE 87; RESP 18; TEMP 97.6; O2SAT 96
[2016-04-28] MEDS: ACETAMINOPHEN/HYDROcodone 325 MG/7.5 MG TAB PO PRN ×3 (04:00→17:24)
[2016-04-28 04:22] LABS: AUTOMATED NEUTROPHIL # 13.5 TH/MM3 (1.8-7.7); BASOPHIL % 0.2 % (0.0-2.0); HEMATOCRIT 26.3 % (35.0-46.0); LYMPHOCYTE # 0.6 TH/MM3 (1.0-4.8); MEAN CORPUSCULAR HEMOGLOBIN 36.6 PG (27.0-34.0); MEAN CORPUSCULAR HGB CONC 34.9 % (32.0-36.0); MONO % 8.7 % (0.0-8.0); NEUT % 87.1 % (16.0-70.0); PLATELET COUNT 122 TH/MM3 (150-450); RED BLOOD COUNT 2.51 MIL/MM3 (4.00-5.30); RED CELL DISTRIBUTION WIDTH 28.1 % (11.6-17.2); WHITE BLOOD COUNT 15.5 TH/MM3 (4.0-11.0)
[2016-04-28 04:30] LABS: HEMO FLAGS AUTO DIFF
[2016-04-28 04:51] LABS: BICARBONATE 30.8 MEQ/L (21.0-32.0); POTASSIUM 3.6 MEQ/L (3.5-5.1)
[2016-04-28 05:27] LABS: BANDS 36 % (0-6); METAMYELOCYTES 2 % (0-1); NEUTROPHIL # MANUAL DIFF 13.8 TH/MM3 (1.8-7.7); PLATELET ESTIMATE SMEAR LOW (NORMAL); PLATELET MORPHOLOGY NORMAL (NORMAL); POLYS (SEG NEUTROPHILS) 51 % (16-70); SCAN/DIFF FINAL DIFF MANUAL; WBC DIFF SAMPLE 100
[2016-04-28 08:00] VITALS: BP 88/52; PULSE 83; RESP 18; TEMP 96.6; O2SAT 97
[2016-04-28] MEDS: GABAPENTIN 300 MG CAP PO SCH ×3 (08:29→17:24)
[2016-04-28] MEDS: SODIUM CHLORIDE 1 GRAM TAB PO SCH ×2 (08:29→19:47)
[2016-04-28] MEDS: CLOPIDOGREL 75 MG TAB PO SCH (08:30)
[2016-04-28] MEDS: BUDESONIDE-FORMOTEROL 80/4.5 MCG INHALER INH SCH ×2 (08:30→19:47)
[2016-04-28] MEDS: PANTOPRAZOLE SOD 20 MG DELAYED RELEASE TAB PO SCH (08:30)
[2016-04-28] MEDS: ASPIRIN 81 MG CHEW TAB CHEW SCH (08:30)
[2016-04-28] MEDS: SODIUM CHLORIDE 0.9% FLUSH 5 ML FLUSH IVF SCH ×2 (08:31→19:47)
--- NOTE | 2016-04-28 11:07 | HHI.PR ---
Subjective Remarks Pt feeling well today Sitting up in the chair, drinking coffee No new complaints Afebrile Objective Vitals Vital Signs Date Time Temp Pulse Resp B/P Pulse Ox O2 Delivery O2 Flow Rate FiO2 04/28/16 08:00 96.6 83 18 88/52 97 04/28/16 05:00 18 04/28/16 04:00 97.6 87 18 100/61 96 04/27/16 23:57 98.6 85 18 98/52 98 04/27/16 20:00 98.6 95 19 102/64 98 04/27/16 19:42 93 04/27/16 16:00 98.6 86 19 50/ 98 04/27/16 11:50 98.2 90 20 80/50 97 04/27/16 04/27/16 04/28/16 15:00 23:00 07:00 Intake Total 1080 ml 240 ml 940 ml Output Total 300 ml 700 ml 1800 ml Balance 780 ml -460 ml -860 ml Intake Oral 1080 ml 240 ml 240 ml IV Total 700 ml Output Urine Total 300 ml 700 ml 1800 ml # Bowel Movements 1 1 1 Result Diagram: 04/28/16 0400 04/28/16 0400 Other Results Laboratory Tests Test 04/26/16 04/26/16 04/27/16 04/27/16 14:30 20:00 01:00 01:09 Sodium Level 124 MEQ/L 121 MEQ/L 122 MEQ/L Potassium Level 3.5 MEQ/L Chloride Level 84 MEQ/L Carbon Dioxide Level 29.4 MEQ/L Anion Gap 11 MEQ/L Blood Urea Nitrogen 10 MG/DL Creatinine 0.37 MG/DL Estimat Glomerular Filtration 176 ML/MIN Rate Random Glucose 146 MG/DL Calcium Level 8.4 MG/DL Magnesium Level 1.3 MG/DL Thyroid Stimulating Hormone 2.010 uIU/ML 3rd Gen Serum Osmolality 249 MOSM/KG Urine Osmolality 615 MOSM/KG Urine Random Sodium 135 MEQ/L Urine Random Chloride 204 MEQ/L Vancomycin Level Trough 5.8 MCG/ML White Blood Count 34.0 TH/MM3 Red Blood Count 2.70 MIL/MM3 Hemoglobin 9.6 GM/DL Hematocrit 28.3 % Mean Corpuscular Volume 104.8 FL Mean Corpuscular Hemoglobin 35.7 PG Mean Corpuscular Hemoglobin 34.0 % Concent Red Cell Distribution Width 27.7 % Platelet Count 138 TH/MM3 Mean Platelet Volume 9.4 FL Neutrophils (%) (Auto) 90.8 % Lymphocytes (%) (Auto) 1.8 % Monocytes (%) (Auto) 7.1 % Eosinophils (%) (Auto) 0.1 % Basophils (%) (Auto) 0.2 % Neutrophils # (Auto) 30.8 TH/MM3 Lymphocytes # (Auto) 0.6 TH/MM3 Monocytes # (Auto) 2.4 TH/MM3 Eosinophils # (Auto) 0.0 TH/MM3 Basophils # (Auto) 0.1 TH/MM3 CBC Comment AUTO DIFF Differential Total Cells 100 Counted Neutrophils % (Manual) 79 % Band Neutrophils % 11 % Lymphocytes % 1 % Monocytes % 8 % Neutrophils # (Manual) 30.9 TH/MM3 Myelocytes 1 % Differential Comment FINAL DIFF MANUAL Toxic Vacuolation PRESENT Platelet Estimate LOW Platelet Morphology Comment NORMAL Polychromasia 2.3 % Red Cell Morphology Comment NORMAL Test 04/27/16 04/27/16 04/28/16 08:32 19:20 04:00 Sodium Level 123 MEQ/L 127 MEQ/L 134 MEQ/L Potassium Level 3.0 MEQ/L 3.6 MEQ/L 3.6 MEQ/L Chloride Level 82 MEQ/L 89 MEQ/L 95 MEQ/L Carbon Dioxide Level 28.4 MEQ/L 30.7 MEQ/L 30.8 MEQ/L Anion Gap 13 MEQ/L 7 MEQ/L 8 MEQ/L Blood Urea Nitrogen 12 MG/DL 16 MG/DL 11 MG/DL Creatinine 0.22 MG/DL 0.38 MG/DL 0.36 MG/DL Estimat Glomerular Filtration 320 ML/MIN 170 ML/MIN 181 ML/MIN Rate Random Glucose 108 MG/DL 101 MG/DL 105 MG/DL Calcium Level 8.2 MG/DL 8.1 MG/DL 8.5 MG/DL White Blood Count 15.5 TH/MM3 Red Blood Count 2.51 MIL/MM3 Hemoglobin 9.2 GM/DL Hematocrit 26.3 % Mean Corpuscular Volume 105.0 FL Mean Corpuscular Hemoglobin 36.6 PG Mean Corpuscular Hemoglobin 34.9 % Concent Red Cell Distribution Width 28.1 % Platelet Count 122 TH/MM3 Mean Platelet Volume 9.0 FL Neutrophils (%) (Auto) 87.1 % Lymphocytes (%) (Auto) 4.0 % Monocytes (%) (Auto) 8.7 % Eosinophils (%) (Auto) 0.0 % Basophils (%) (Auto) 0.2 % Neutrophils # (Auto) 13.5 TH/MM3 Lymphocytes # (Auto) 0.6 TH/MM3 Monocytes # (Auto) 1.4 TH/MM3 Eosinophils # (Auto) 0.0 TH/MM3 Basophils # (Auto) 0.0 TH/MM3 CBC Comment AUTO DIFF Differential Total Cells 100 Counted Neutrophils % (Manual) 51 % Band Neutrophils % 36 % Lymphocytes % 4 % Monocytes % 7 % Neutrophils # (Manual) 13.8 TH/MM3 Metamyelocytes 2 % Differential Comment FINAL DIFF MANUAL Platelet Estimate LOW Platelet Morphology Comment NORMAL Magnesium Level 2.0 MG/DL Imaging Last Impressions Chest X-Ray 04/23/162328 Signed Impressions: Service Date/Time: Saturday, April 23, 2016 23:58 - CONCLUSION: The lungs are clear. Jorge Philip MD CT Angiography 04/23/162328 Signed Impressions: Service Date/Time: Sunday, April 24, 2016 01:23 - CONCLUSION: 1. The study is negative for pulmonary embolism. 2. Known malignancy with 3 parenchymal opacities, the largest medial right costophrenic angle measuring 1.9 cm. 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 Monahan - Pt was admitted with increased SOB and nonproductive cough. - CXR was negative. - CTA (04/24/16) --> The study is negative for pulmonary embolism. Known malignancy with 3 parenchymal opacities, the largest medial right costophrenic angle measuring 1.9 cm. - MBS evaluation shows oropharyngeal penetration and aspiration - Pts daughter, who is a speech therapist, requested that the pts diet be soft foods with nectar thickened liquids knowing that the pt is chronically aspirating, which was for the comfort of the pt knowing she is fairly end stage. - Blood cx / staph epi. and elevation of wbc...?true infection vs contamination. Pts last dose of Neulasta was on 04/11. - Pt also a daily EtOH user and risk for w/d - She developed significant hyponatremia probably related to SIADH - Pt was given gentle 3% NS x 2 bags of 250mL but labs continued to trend down. - Serum osmols 246m Urine Osmols 615 and urine Na+ 135 - Fluid restrict - Pt was given Tolvaptan x one dose on 04/27 with improvement in her Na+ to 127 yesterday and repeat on 04/28 of 134 - Repeat labs tomorrow - Cont. modified diet - Ativan PRN - Appreciate ID consultation - Blood cultures from port re-drawn on 04/27 to help determine if blood cx contaminant. - Culture from port with NGTD (2) Dyspnea Status: Acute Plan: - See above (3) Sacral decubitus ulcer, stage II Status: Acute Plan: - Wound care consulted and they have made recommendations for dressing changes QOD and rotating the pt to keep her off the pressure ulcer. - Wave bed requested (4) Symptomatic anemia Status: Acute Plan: - Pt has had issues with anemia related to her chemo - No noted active bleeding issues - Pt transfused with 1 unit PRBCs in the ER. - H/H stable - B12 and Folate levels levels are stable (5) Thrombocytopenia Status: Chronic Plan: - Also noted to be related to her chemo - Monitor (6) Tobacco abuse disorder Status: Chronic Plan: - Tobacco cessation (7) Hypertension Status: Chronic Plan: - Stable. Assessment and Plan Patient examined. Assessment and plan formulated with Bethany Quezada PA-C. I agree with the above. siadh stable. na 134. aspiration. mod diet. tolerating diet staph epi positive blood cx. ID following d/c once infectious dz issues and clear and plan formulated wbc trending down Problem Qualifiers (1) Dyspnea: Qualified Code: R06.02 - Shortness of breath Bethany Quezada Apr 28, 2016 11:07 Kobi Mac MD Apr 28, 2016 11:34
[2016-04-28] MEDS ORDERED: SODIUM CHLORIDE 0.65% NASAL SPRAY 45 ML BTL EACH NARE ONE (11:45)
[2016-04-28] MEDS ORDERED: PHARMACY ORDERED LAB XX ONE (11:45)
[2016-04-28] MEDS ORDERED: SODIUM CHLORIDE 0.65% NASAL SPRAY 45 ML BTL EACH NARE PRN (11:45)
[2016-04-28 12:00] VITALS: BP 82/53; PULSE 79; RESP 16; TEMP 95.9; O2SAT 96
[2016-04-28 16:00] VITALS: BP 97/60; PULSE 85; RESP 16; TEMP 96.9; O2SAT 99
--- NOTE | 2016-04-28 17:19 | PD.ONC.PN ---
Subjective Subjective Remarks Feeling better. No CP/SOB. Daughter at the bedside. Objective Data Date Time Temp Pulse Resp B/P Pulse Ox O2 Delivery O2 Flow Rate FiO2 04/28/16 12:00 95.9 79 16 82/53 96 04/28/16 08:00 96.6 83 18 88/52 97 04/28/16 05:00 18 04/28/16 04:00 97.6 87 18 100/61 96 04/27/16 23:57 98.6 85 18 98/52 98 04/27/16 20:00 98.6 95 19 102/64 98 04/27/16 19:42 93 04/28/16 04/28/16 04/28/16 07:00 15:00 23:00 Intake Total 940 ml 591 ml 45 ml Output Total 1800 ml 500 ml Balance -860 ml 91 ml 45 ml Result Diagram: 04/28/160 04/28/16 0400 Laboratory Results Laboratory Tests Test 04/27/16 04/28/16 04/28/16 19:20 04:00 11:45 Sodium Level 127 MEQ/L 134 MEQ/L Potassium Level 3.6 MEQ/L 3.6 MEQ/L Chloride Level 89 MEQ/L 95 MEQ/L Carbon Dioxide Level 30.7 MEQ/L 30.8 MEQ/L Anion Gap 7 MEQ/L 8 MEQ/L Blood Urea Nitrogen 16 MG/DL 11 MG/DL Creatinine 0.38 MG/DL 0.36 MG/DL Estimat Glomerular Filtration 170 ML/MIN 181 ML/MIN Rate Random Glucose 101 MG/DL 105 MG/DL Calcium Level 8.1 MG/DL 8.5 MG/DL White Blood Count 15.5 TH/MM3 Red Blood Count 2.51 MIL/MM3 Hemoglobin 9.2 GM/DL Hematocrit 26.3 % Mean Corpuscular Volume 105.0 FL Mean Corpuscular Hemoglobin 36.6 PG Mean Corpuscular Hemoglobin 34.9 % Concent Red Cell Distribution Width 28.1 % Platelet Count 122 TH/MM3 Mean Platelet Volume 9.0 FL Neutrophils (%) (Auto) 87.1 % Lymphocytes (%) (Auto) 4.0 % Monocytes (%) (Auto) 8.7 % Eosinophils (%) (Auto) 0.0 % Basophils (%) (Auto) 0.2 % Neutrophils # (Auto) 13.5 TH/MM3 Lymphocytes # (Auto) 0.6 TH/MM3 Monocytes # (Auto) 1.4 TH/MM3 Eosinophils # (Auto) 0.0 TH/MM3 Basophils # (Auto) 0.0 TH/MM3 CBC Comment AUTO DIFF Differential Total Cells 100 Counted Neutrophils % (Manual) 51 % Band Neutrophils % 36 % Lymphocytes % 4 % Monocytes % 7 % Neutrophils # (Manual) 13.8 TH/MM3 Metamyelocytes 2 % Differential Comment FINAL DIFF MANUAL Platelet Estimate LOW Platelet Morphology Comment NORMAL Magnesium Level 2.0 MG/DL Vancomycin Level Trough 19.0 MCG/ML Culture Results Microbiology Date/Time Procedure Status Source Growth 04/25/16 21:21 Aerobic Blood Culture - Preliminary Resulted Blood Peripheral NO GROWTH IN 3 DAYS 04/25/16 21:21 Anaerobic Blood Culture - Preliminary Resulted Blood Peripheral NO GROWTH IN 3 DAYS 04/25/16 21:25 Aerobic Blood Culture - Preliminary Resulted Blood Peripheral NO GROWTH IN 3 DAYS 04/25/16 21:25 Anaerobic Blood Culture - Preliminary Resulted Blood Peripheral NO GROWTH IN 3 DAYS 04/27/16 19:20 Aerobic Blood Culture - Preliminary Resulted Blood Other NO GROWTH IN 1 DAY 04/27/16 19:20 Anaerobic Blood Culture - Preliminary Resulted Blood Other NO GROWTH IN 1 DAY Administered Medications Medications (Trade) Dose Ordered Sig/Matt Route PRN Reason Start Time Stop Time Status Last Admin Dose Admin IV Flush (NS Flush) 2 ml UNSCH PRN IVF FLUSH AFTER USING IV ACCESS 04/23/16 23:30 04/27/16 13:30 IV Flush (NS Flush) 2 ml BID IVF 04/24/16 09:00 04/28/16 08:31 Aspirin (Aspirin Chew) 81 mg DAILY CHEW 04/24/16 13:15 04/28/16 08:30 Budesonide/ Formoterol Fumarate (Symbicort 80-4.5 Mcg Inh) 2 puff Q12HR INH 04/24/16 13:15 04/28/16 08:30 Clopidogrel Bisulfate (Plavix) 75 mg DAILY PO 04/24/16 13:15 04/28/16 08:30 Gabapentin (Neurontin) 300 mg TID PO 04/24/16 18:00 04/28/16 11:50 Acetaminophen/ Hydrocodone Bitart (Robertson 7.5-325 Mg) 1 tab Q6H PRN PO PAIN 3-10 04/24/16 13:15 04/28/16 10:57 Levothyroxine Sodium (Synthroid) 50 mcg DAILY@06 PO 04/25/16 06:00 04/28/16 03:51 Pantoprazole Sodium (Protonix) 20 mg DAILY PO 04/25/16 09:00 04/28/16 08:30 Ondansetron HCl (Zofran Inj) 4 mg Q6H PRN IV nausea 04/24/16 13:15 04/25/16 14:47 Temazepam (Restoril) 15 mg HS PRN PO insominia 04/24/16 13:45 04/27/16 21:32 Lorazepam (Ativan) 0.5 mg Q6H PRN PO anxiety 04/26/16 08:45 04/26/16 14:54 Sodium Chloride 1 gm 1 gm BID PO 04/26/16 21:15 04/28/16 08:29 Piperacillin Sod/ Tazobactam Sod 50 ml @ 100 mls/hr Q6H IV 04/27/16 10:00 04/28/16 15:49 Vancomycin HCl/ Sodium Chloride (Vancomycin Inj/ NS 250 ml Inj) 257.5 ml @ 258 mls/hr Q8H IV 04/27/16 12:00 04/28/16 11:49 Objective Remarks GENERAL: Cachectic, weak. SKIN: Warm and dry. HEAD: Normocephalic.Alopecia EYES: No scleral icterus. No injection or drainage. NECK: Supple, trachea midline. No JVD or lymphadenopathy. LYMPHATIC: No adenopathy. CARDIOVASCULAR: Regular rate and rhythm without murmurs. RESPIRATORY: Breath sounds equal bilaterally. No accessory muscle use. GASTROINTESTINAL: Abdomen soft, non-tender, nondistended. EXTREMITIES: No cyanosis, or edema. MUSCULOSKELETAL: Adequate muscle tone. NEUROLOGICAL: No obvious focal deficit. Awake, alert, and oriented x3. PSYCHIATRIC: Appropriate mood and affect; insight and judgment normal. Assessment/Plan Problem List: (1) Leukocytosis Status: Acute Plan: Neulasta on 04/11/16 --BC 04/27 no growth --BC on 04/25 show no growth x 1 day. --BC on 04/24 show 1 positive for staph epidermis, likely contaminant. --?infection with toxic granulation noted. On Zosyn/vanc, WBC trending down. (2) Squamous cell carcinoma of head and neck Status: Acute Plan: --will place chemo on hold. possibly plan to give immunotherapy at some point once discharged February 2014--diagnosed and rec'd carboplatin and Taxol+ concurrent radiation July 2014--completed chemo/radiation --Remission--- October 2015--found to have lung mets, biopsy proven (again squamous cell carcinoma consistent with H&N) --Carbo/Taxol x 7 cycles --last cycle on Apr.11. rec'd Neulasta on body injector on Apr.11 (3) Thrombocytopenia Status: Chronic Plan: --d/t chemo, monitor transfuse as needed (4) Symptomatic anemia Status: Acute Plan: --d/t chemo --s/p 1 unit pRBC during this admission--reportedly her symptoms of dyspnea improved s/p transfusion. --Hgb stable (5) Hyponatremia Status: Acute Plan: -- Stable -- Fluid restriction -- Pt started on Samsca --Na up to 134. Assessment 65y/o female with head and neck cancer, admitted with aspiration w/ + BC. h/o Head and neck cancer diagnosed in February 2014. She was found to have lung metastasis in September 2015. Anxiety disorder. DVT of the right lower extremity. Hypothyroidism Plan 1. Extensive discussion with pt and her daughter. 2. Hold chemotherapy 3. Continue Abx per ID. 4. Monitor labs. Problem Qualifiers (1) Leukocytosis: Qualified Code: D72.829 - Leukocytosis, unspecified type Hai Monahan MD Apr 28, 2016 17:19
--- NOTE | 2016-04-28 19:14 | HHI.IDPN ---
Subjective Subjective Remarks is a 65 y/o CF with PMHx of metastatic head and neck cancer, diagnosed with squamous cell carcinoma in Feb 2014. She underwent Carboplatin and Taxol chemotherapy followed by radiation which she reportedly was completed in Feb 2015. She was considered to be in remission but in October of last year she was found to have lung metastasis, biopsy-proven. ID following for ? Port infection vs aspiration Pneumonitis. Overnight events reviewed. No fever No rash No diarrhea Feels well would like to go home. Antibiotics Zosyn IV Vanco IV Lines Line sites with no e/o infection Past Medical History reviewed Allergies: Coded Allergies: No Known Allergies (Verified , 07/09/15) Objective . Vital Signs Date Time Temp Pulse Resp B/P Pulse Ox O2 Delivery O2 Flow Rate FiO2 04/28/16 16:00 96.9 85 16 97/60 99 04/28/16 12:00 95.9 79 16 82/53 96 04/28/16 08:00 96.6 83 18 88/52 97 04/28/16 05:00 18 04/28/16 04:00 97.6 87 18 100/61 96 04/27/16 23:57 98.6 85 18 98/52 98 04/27/16 20:00 98.6 95 19 102/64 98 04/27/16 19:42 93 04/27/16 04/27/16 04/28/16 15:00 23:00 07:00 Intake Total 1080 ml 240 ml 940 ml Output Total 300 ml 700 ml 1800 ml Balance 780 ml -460 ml -860 ml Intake Oral 1080 ml 240 ml 240 ml IV Total 700 ml Output Urine Total 300 ml 700 ml 1800 ml # Bowel Movements 1 1 1 . Laboratory Tests Test 04/27/16 04/28/16 01:09 04:00 White Blood Count 34.0 TH/MM3 15.5 TH/MM3 Red Blood Count 2.70 MIL/MM3 2.51 MIL/MM3 Hemoglobin 9.6 GM/DL 9.2 GM/DL Hematocrit 28.3 % 26.3 % Mean Corpuscular Volume 104.8 FL 105.0 FL Mean Corpuscular Hemoglobin 35.7 PG 36.6 PG Mean Corpuscular Hemoglobin 34.0 % 34.9 % Concent Red Cell Distribution Width 27.7 % 28.1 % Platelet Count 138 TH/MM3 122 TH/MM3 Mean Platelet Volume 9.4 FL 9.0 FL Neutrophils (%) (Auto) 90.8 % 87.1 % Lymphocytes (%) (Auto) 1.8 % 4.0 % Monocytes (%) (Auto) 7.1 % 8.7 % Eosinophils (%) (Auto) 0.1 % 0.0 % Basophils (%) (Auto) 0.2 % 0.2 % Neutrophils # (Auto) 30.8 TH/MM3 13.5 TH/MM3 Lymphocytes # (Auto) 0.6 TH/MM3 0.6 TH/MM3 Monocytes # (Auto) 2.4 TH/MM3 1.4 TH/MM3 Eosinophils # (Auto) 0.0 TH/MM3 0.0 TH/MM3 Basophils # (Auto) 0.1 TH/MM3 0.0 TH/MM3 CBC Comment AUTO DIFF AUTO DIFF Differential Total Cells 100 100 Counted Neutrophils % (Manual) 79 % 51 % Band Neutrophils % 11 % 36 % Lymphocytes % 1 % 4 % Monocytes % 8 % 7 % Neutrophils # (Manual) 30.9 TH/MM3 13.8 TH/MM3 Myelocytes 1 % Differential Comment FINAL DIFF FINAL DIFF MANUAL MANUAL Toxic Vacuolation PRESENT Platelet Estimate LOW LOW Platelet Morphology Comment NORMAL NORMAL Polychromasia 2.3 % Red Cell Morphology Comment NORMAL Metamyelocytes 2 % Laboratory Tests Test 04/26/16 04/27/16 04/27/16 04/27/16 20:00 01:00 08:32 19:20 Sodium Level 121 MEQ/L 122 MEQ/L 123 MEQ/L 127 MEQ/L Serum Osmolality 249 MOSM/KG Potassium Level 3.0 MEQ/L 3.6 MEQ/L Chloride Level 82 MEQ/L 89 MEQ/L Carbon Dioxide Level 28.4 MEQ/L 30.7 MEQ/L Anion Gap 13 MEQ/L 7 MEQ/L Blood Urea Nitrogen 12 MG/DL 16 MG/DL Creatinine 0.22 MG/DL 0.38 MG/DL Estimat Glomerular Filtration 320 ML/MIN 170 ML/MIN Rate Random Glucose 108 MG/DL 101 MG/DL Calcium Level 8.2 MG/DL 8.1 MG/DL Test 04/28/16 04:00 Sodium Level 134 MEQ/L Potassium Level 3.6 MEQ/L Chloride Level 95 MEQ/L Carbon Dioxide Level 30.8 MEQ/L Anion Gap 8 MEQ/L Blood Urea Nitrogen 11 MG/DL Creatinine 0.36 MG/DL Estimat Glomerular Filtration 181 ML/MIN Rate Random Glucose 105 MG/DL Calcium Level 8.5 MG/DL Magnesium Level 2.0 MG/DL Microbiology Date/Time Procedure Status Source Growth 04/25/16 21:21 Aerobic Blood Culture - Preliminary Resulted Blood Peripheral NO GROWTH IN 3 DAYS 04/25/16 21:21 Anaerobic Blood Culture - Preliminary Resulted Blood Peripheral NO GROWTH IN 3 DAYS 04/25/16 21:25 Aerobic Blood Culture - Preliminary Resulted Blood Peripheral NO GROWTH IN 3 DAYS 04/25/16 21:25 Anaerobic Blood Culture - Preliminary Resulted Blood Peripheral NO GROWTH IN 3 DAYS 04/27/16 19:20 Aerobic Blood Culture - Preliminary Resulted Blood Other NO GROWTH IN 1 DAY 04/27/16 19:20 Anaerobic Blood Culture - Preliminary Resulted Blood Other NO GROWTH IN 1 DAY Imaging Last Impressions Chest X-Ray 04/27/16 0000 Signed Impressions: Service Date/Time: Wednesday, April 27, 2016 02:12 - CONCLUSION: No acute disease. No significant change has occurred. Tulio Tellez MD Venous Access Device Injection 04/26/16 0000 Signed Impressions: Service Date/Time: Tuesday, April 26, 2016 11:24 - CONCLUSION: 1. Fibrin sheath surrounding catheter tip. TPA is to be infused Steve Bone MD Neck CT 04/25/16 0000 Signed Impressions: Service Date/Time: Monday, April 25, 2016 21:36 - CONCLUSION: 1. Mild soft tissue swelling in the supraglottic and glottic region that is fairly symmetric and of uncertain etiology but possibly related to prior radiation. Previous left supraclavicular mass has nearly completely resolved. No new adenopathy in the neck. [id number] present. See above discussion. Joey Swenson MD Modified Barium Swallow 04/25/16 0000 Signed Impressions: Service Date/Time: Monday, April 25, 2016 00:00 - CONCLUSION: Please see speech pathology report Tyrese Rodriguez MD CT Angiography 04/23/16 [id number] Signed Impressions: Service Date/Time: Sunday, April 24, 2016 01:23 - CONCLUSION: 1. The study is negative for pulmonary embolism. 2. Known malignancy with 3 parenchymal opacities, the largest medial right costophrenic angle measuring 1.9 cm. Jorge Philip MD Physical Exam GENERAL: This is a well-nourished, well-developed patient, in no apparent distress. SKIN: No rashes, ecchymoses or lesions. Cool and dry. HEAD: Atraumatic. Normocephalic. No temporal or scalp tenderness. EYES: Pupils equal round and reactive. Extraocular motions intact. No scleral icterus. No injection or drainage. ENT: Airway patent. Dentures noted. No oral thrush noted. NECK: Trachea midline. Supple, nontender, no meningeal signs. CARDIOVASCULAR: HS audible. RESPIRATORY: Clear to auscultation. Breath sounds equal bilaterally. GASTROINTESTINAL: Abdomen soft, non-tender, nondistended. MUSCULOSKELETAL: Extremities without clubbing, cyanosis, or edema. No joint tenderness, effusion, or edema noted. No calf tenderness. Negative Homans sign bilaterally. NEUROLOGICAL: Awake and alert. Grossly nonfocal sacral area with scarring noted. No s/o infection or ulcers noted. Psych: pleasant, cooperative IV line sites with no e/o infection. Port site with no e/o infection. Assessment & Plan Remarks Sepsis in Immunecompromised patient. May not have typical signs of infection/ sepsis. Aspiration Pneumonia. Patient failed swallow eval and consumes significant amount alcohol along with pain control narcotics. These along with altered anatomy of her airway puts her at high risk for infection. Staph epiderm bacteremia in a pt with port. Blood cultures may be from port but not labeled such per patient. Head neck cancer with lung mets High grade leucocytosis. Recs: Continue Zosyn IV DC Vanco IV. 2 different staph species appear to be contaminant. Port blood cultures are negative. Also patient seemed to have responded to Zosyn IV. Follow cultures Follow clinically. d/w patient, NADJA Quezada. If after stopping Vanco IV she continues to be afebrile, WBC going downwards ok to DC her on augmentin oral liquid nectar thick consistency for aspiration pneumonitis for total of 5 days. Would recommend counseling to avoid alcohol consumption given her aspiration risk Will follow prn. Cristela Poole MD Apr 28, 2016 19:14
[2016-04-28 20:00] VITALS: BP 92/54; PULSE 81; RESP 20; TEMP 98.4; O2SAT 98
[2016-04-28 20:17] VITALS: PULSE 74
[2016-04-28] MEDS: TEMAZEPAM 15 MG CAP PO PRN (21:10)
[2016-04-29] VITALS: BP 90/52; PULSE 76; RESP 20; TEMP 97.6; O2SAT 96
[2016-04-29 04:00] VITALS: BP 92/58; PULSE 74; RESP 20; TEMP 97.8; O2SAT 95
[2016-04-29] MEDS: LEVOTHYROXINE SODIUM 50 MCG TAB PO SCH (04:09)
[2016-04-29] MEDS: PIPERACIL-TAZO 3.375 GM PREMIX 50 ML IV SCH ×3 (04:10→16:45)
[2016-04-29] MEDS: ACETAMINOPHEN/HYDROcodone 325 MG/7.5 MG TAB PO PRN ×2 (04:19→11:47)
[2016-04-29 05:08] LABS: AUTOMATED NEUTROPHIL # 5.5 TH/MM3 (1.8-7.7); BASOPHIL % 0.3 % (0.0-2.0); EOSINOPHIL % 0.2 % (0.0-4.0); HEMATOCRIT 22.9 % (35.0-46.0); LYMPHOCYTE # 0.6 TH/MM3 (1.0-4.8); MEAN CELL VOLUME 105.8 FL (80.0-100.0); MEAN CORPUSCULAR HEMOGLOBIN 36.9 PG (27.0-34.0); MEAN CORPUSCULAR HGB CONC 34.9 % (32.0-36.0); MONO % 11.9 % (0.0-8.0); NEUT % 78.6 % (16.0-70.0); PLATELET COUNT 130 TH/MM3 (150-450); RED BLOOD COUNT 2.16 MIL/MM3 (4.00-5.30)
[2016-04-29 05:26] LABS: HEMO FLAGS AUTO DIFF
[2016-04-29 05:36] LABS: BICARBONATE 33.2 MEQ/L (21.0-32.0); MAGNESIUM 1.9 MG/DL (1.5-2.5); POTASSIUM 3.4 MEQ/L (3.5-5.1)
[2016-04-29 07:22] LABS: BANDS 29 % (0-6); POLYS (SEG NEUTROPHILS) 56 % (16-70); WBC DIFF SAMPLE 100
[2016-04-29 07:24] LABS: TOXIC GRANULATION 2+ (NORMAL)
[2016-04-29 07:25] LABS: PLATELET ESTIMATE SMEAR NORMAL (NORMAL); PLATELET MORPHOLOGY NORMAL (NORMAL)
[2016-04-29 07:27] LABS: SCAN/DIFF FINAL DIFF MANUAL
[2016-04-29 08:04] VITALS: BP 115/71; PULSE 74; RESP 16; TEMP 96.6; O2SAT 99
[2016-04-29] MEDS: GABAPENTIN 300 MG CAP PO SCH ×3 (08:44→16:45)
[2016-04-29] MEDS: SODIUM CHLORIDE 1 GRAM TAB PO SCH (08:44)
[2016-04-29] MEDS: CLOPIDOGREL 75 MG TAB PO SCH (08:44)
[2016-04-29] MEDS: PANTOPRAZOLE SOD 20 MG DELAYED RELEASE TAB PO SCH (08:44)
[2016-04-29] MEDS: ASPIRIN 81 MG CHEW TAB CHEW SCH (08:44)
[2016-04-29] MEDS: SODIUM CHLORIDE 0.9% FLUSH 5 ML FLUSH IVF SCH (08:45)
[2016-04-29] MEDS: BUDESONIDE-FORMOTEROL 80/4.5 MCG INHALER INH SCH (08:45)
[2016-04-29] MEDS ORDERED: POTASSIUM CHLORIDE 20 MEQ CONTROLLED RELEASE TAB PO ONE (10:00)
[2016-04-29] MEDS ORDERED: ACETAMINOPHEN 325 MG TAB PO PRN (10:00)
[2016-04-29] MEDS ORDERED: SODIUM CHLOR 0.9% 250 ML INJ 250 ML IV ONE (10:00)
[2016-04-29] MEDS ORDERED: diphenhydrAMINE HCL 25 MG CAP PO PRN (10:00)
[2016-04-29] MEDS ORDERED: AUGM250S2 PO (10:35)
--- NOTE | 2016-04-29 10:38 | HHI.FF ---
Face to Face Verification Diagnosis: (1) Metastatic squamous cell carcinoma to lung (2) Hypertension (3) Leukocytosis (4) Hyponatremia (5) Sacral decubitus ulcer, stage II (6) Thrombocytopenia (7) Tobacco abuse disorder Physical Therapy Order: Evaluate and Treat, Improve ambulation, Strength and gait training Home Health Nursing Order: Medical education Wound care and dressing changes Nursing assessment with vital signs Instructions: Please draw CBC and BMP on Monday05/02/[address] Hai Monahan I have seen patient Cam Clark on 04/29/16. My clinical findings support the need for the requested home health care services because: Ltd mobility - disease progression Deconditioned w/ increased weakness High risk of falls I certify that my clinical findings support that this patient is homebound because: Unsteady gait/balance Bethany Quezada Apr 29, 2016 10:38
--- NOTE | 2016-04-29 11:03 | HHI.DS ---
Discharge Summary Admission Date Apr 24, 2016 at 02:56 Discharge Date: Apr 29, 2016 Admitting Diagnosis symptomatic anemia, infected sacral decubitus ulcer, leukocytosis (1) Metastatic squamous cell carcinoma to lung Diagnosis: Principal (2) Dyspnea Diagnosis: Principal (3) Sacral decubitus ulcer, stage II Diagnosis: Secondary (4) Symptomatic anemia Diagnosis: Secondary (5) Thrombocytopenia Diagnosis: Secondary (6) Tobacco abuse disorder Diagnosis: Secondary (7) Hypertension Diagnosis: Secondary Consultants Dr. Hai Monahan - Oncology Dr. Cristela Poole - Infectious Disease Brief History Ms. Clark is a 65 y/o female with head and neck cancer with mets to the lung s/ p XRT and is on chemo with Taxol and Carboplatin (last dose was 04/11/16), COPD, still smoking and drinking alcohol daily. She presented to the ED at [facility] on 04/23 with complaints of shortness of breath and nonproductive cough. The symptoms have reportedly been progressively worsening since yesterday. Her SOB but is worse with exertion. Denies any fevers or chills, chest pain, palpitations, nausea/vomiting. Patient is also has a known decubitus ulcer which is reportedly causing some pain. At baseline she is able to ambulate from bed to the restroom. Her labs at admission revealed a significantly elevated WBC count of 26,000 with elevated bands. She has been afebrile. CXR in the ED was negative. CTA Thorax was negative for pulmonary embolism but did show her known malignancy with 3 parenchymal opacities, the largest medial right costophrenic angle measuring 1.9 cm. She was given a dose of Solu-Medrol IV and Vancomycin IV in the ER. CBC/BMP: 04/29/16 0416 04/29/16 0416 Significant Findings Laboratory Tests Test 04/26/16 04/26/16 04/27/16 04/27/16 14:30 20:00 01:00 01:09 Sodium Level 124 MEQ/L 121 MEQ/L 122 MEQ/L (136-145) (136-145) (136-145) Chloride Level 84 MEQ/L (98-107) Creatinine 0.37 MG/DL (0.50-1.00) Random Glucose 146 MG/DL (74-106) Calcium Level 8.4 MG/DL (8.5-10.1) Magnesium Level 1.3 MG/DL (1.5-2.5) Serum Osmolality 249 MOSM/KG (275-295) White Blood Count 34.0 TH/MM3 (4.0-11.0) Red Blood Count 2.70 MIL/MM3 (4.00-5.30) Hemoglobin 9.6 GM/DL (11.6-15.3) Hematocrit 28.3 % (35.0-46.0) Mean Corpuscular Volume 104.8 FL (80.0-100.0) Mean Corpuscular Hemoglobin 35.7 PG (27.0-34.0) Red Cell Distribution Width 27.7 % (11.6-17.2) Platelet Count 138 TH/MM3 (150-450) Neutrophils (%) (Auto) 90.8 % (16.0-70.0) Lymphocytes (%) (Auto) 1.8 % (9.0-44.0) Neutrophils # (Auto) 30.8 TH/MM3 (1.8-7.7) Lymphocytes # (Auto) 0.6 TH/MM3 (1.0-4.8) Monocytes # (Auto) 2.4 TH/MM3 (0-0.9) Neutrophils % (Manual) 79 % (16-70) Band Neutrophils % 11 % (0-6) Lymphocytes % 1 % (9-44) Neutrophils # (Manual) 30.9 TH/MM3 (1.8-7.7) Myelocytes 1 % (0-0) Toxic Vacuolation PRESENT (NONE SEEN) Platelet Estimate LOW (NORMAL) Polychromasia 2.3 % (0.0-1.9) Test 04/27/16 04/27/16 04/28/16 04/28/16 08:32 19:20 04:00 11:45 Sodium Level 123 MEQ/L 127 MEQ/L 134 MEQ/L (136-145) (136-145) (136-145) Potassium Level 3.0 MEQ/L (3.5-5.1) Chloride Level 82 MEQ/L 89 MEQ/L 95 MEQ/L (98-107) (98-107) (98-107) Creatinine 0.22 MG/DL 0.38 MG/DL 0.36 MG/DL (0.50-1.00) (0.50-1.00) (0.50-1.00) Random Glucose 108 MG/DL (74-106) Calcium Level 8.2 MG/DL 8.1 MG/DL (8.5-10.1) (8.5-10.1) White Blood Count 15.5 TH/MM3 (4.0-11.0) Red Blood Count 2.51 MIL/MM3 (4.00-5.30) Hemoglobin 9.2 GM/DL (11.6-15.3) Hematocrit 26.3 % (35.0-46.0) Mean Corpuscular Volume 105.0 FL (80.0-100.0) Mean Corpuscular Hemoglobin 36.6 PG (27.0-34.0) Red Cell Distribution Width 28.1 % (11.6-17.2) Platelet Count 122 TH/MM3 (150-450) Neutrophils (%) (Auto) 87.1 % (16.0-70.0) Lymphocytes (%) (Auto) 4.0 % (9.0-44.0) Monocytes (%) (Auto) 8.7 % (0.0-8.0) Neutrophils # (Auto) 13.5 TH/MM3 (1.8-7.7) Lymphocytes # (Auto) 0.6 TH/MM3 (1.0-4.8) Monocytes # (Auto) 1.4 TH/MM3 (0-0.9) Band Neutrophils % 36 % (0-6) Lymphocytes % 4 % (9-44) Neutrophils # (Manual) 13.8 TH/MM3 (1.8-7.7) Metamyelocytes 2 % (0-1) Platelet Estimate LOW (NORMAL) Vancomycin Level Trough 19.0 MCG/ML (5.0-10.0) Test 04/29/16 04:16 Red Blood Count 2.16 MIL/MM3 (4.00-5.30) Hemoglobin 8.0 GM/DL (11.6-15.3) Hematocrit 22.9 % (35.0-46.0) Mean Corpuscular Volume 105.8 FL (80.0-100.0) Mean Corpuscular Hemoglobin 36.9 PG (27.0-34.0) Red Cell Distribution Width 28.0 % (11.6-17.2) Platelet Count 130 TH/MM3 (150-450) Neutrophils (%) (Auto) 78.6 % (16.0-70.0) Monocytes (%) (Auto) 11.9 % (0.0-8.0) Lymphocytes # (Auto) 0.6 TH/MM3 (1.0-4.8) Band Neutrophils % 29 % (0-6) Toxic Granulation 2+ (NORMAL) Potassium Level 3.4 MEQ/L (3.5-5.1) Carbon Dioxide Level 33.2 MEQ/L (21.0-32.0) Creatinine 0.29 MG/DL (0.50-1.00) Imaging Last Impressions Chest X-Ray 04/27/16 0000 Signed Impressions: Service Date/Time: Wednesday, April 27, 2016 02:12 - CONCLUSION: No acute disease. No significant change has occurred. Tulio Tellez MD Venous Access Device Injection 04/26/16 0000 Signed Impressions: Service Date/Time: Tuesday, April 26, 2016 11:24 - CONCLUSION: 1. Fibrin sheath surrounding catheter tip. TPA is to be infused Steve Bone MD Neck CT 04/25/16 0000 Signed Impressions: Service Date/Time: Monday, April 25, 2016 21:36 - CONCLUSION: 1. Mild soft tissue swelling in the supraglottic and glottic region that is fairly symmetric and of uncertain etiology but possibly related to prior radiation. Previous left supraclavicular mass has nearly completely resolved. No new adenopathy in the neck. [id number] present. See above discussion. Joey Swenson MD Modified Barium Swallow 04/25/16 0000 Signed Impressions: Service Date/Time: Monday, April 25, 2016 00:00 - CONCLUSION: Please see speech pathology report Tyrese Rodriguez MD CT Angiography 04/23/16 [id number] Signed Impressions: Service Date/Time: Sunday, April 24, 2016 01:23 - CONCLUSION: 1. The study is negative for pulmonary embolism. 2. Known malignancy with 3 parenchymal opacities, the largest medial right costophrenic angle measuring 1.9 cm. Jorge Philip MD PE at Discharge General: NAD, AAOx3 Chest: CTA Cardiac: Regular Abd: +BS, soft ND/NT Ext: No edema Hospital Course Metastatic squamous cell carcinoma to lung Pt with metastatic head and neck cancer to the lungs s/p XRT and on chemo with Carboplatin/Taxol, last round given on 04/11/16. Pt follows with Dr. Monahan. She was admitted with increased SOB and nonproductive cough. CXR at admission was negative. CTA (04/24/16) --> The study is negative for pulmonary embolism. Known malignancy with 3 parenchymal opacities, the largest medial right costophrenic angle measuring 1.9 cm. MBS evaluation shows oropharyngeal penetration and aspiration. Pts daughter, who is a speech therapist, requested that the pts diet be soft foods with nectar thickened liquids knowing that the pt is chronically aspirating, which was for the comfort of the pt knowing she is fairly end stage. Blood cx (04/24) grew out 2/4 staph epi. SHe had an elevation of WBC count but difficult to tell if this was a true infection vs contamination. Pts last dose of Neulasta was on 04/11. ID was consulted. Cultures were drawn from her port on 04/25 which have shown no growth to date as well as repeat cultures on 04/27. Pt was given Vancomycin from 04/24 to 04/28 and Zosyn from 04/27 to 04/29. Pt will be discharged on Augmentin liquid 500mg po TID. Her WBC on the day of discharge had returned to normal range at 7.0. Pt also a daily EtOH user and risk for w/d. She was given Ativan PRN. During this admission she developed significant hyponatremia probably related to SIADH. Pt was given gentle 3% NS x 2 bags of 250mL but labs continued to trend down. Serum osmols 246m Urine Osmols 615 and urine Na+ 135. Pt was on fluid restriction of 1200mL and was given Tolvaptan x one dose on 04/27 with improvement in her Na+ to 127 on . and repeat on 04/28 of 134. Her Na+ held at 138 on 04/29. The case was discussed with Dr. Monahan prior to admission and the pt will get repeat labs on Monday05/02/16 to re-evaluate her sodium levels. Pt has had issues with anemia related to her chemo. She has not had any noted active bleeding issues. Pt was transfused with 1 unit PRBCs in the ER and again on 04/29 for a decrease in her H/H. Pt will have repeat labs on Monday with results to Dr. Monahan. Pt will followup with Dr. Monahan next week and with her PCP, Dr. Nogueira in 1 week. Pt Condition on Discharge: Stable Discharge Disposition: Disch w/ Home Health Serv Discharge Instructions DIET: Follow Instructions for: Heart Healthy Diet Speech Therapy-Diet Recommends: Pureed, Pudding Thickened Liquids Additional Diet Instructions: Pt needs to be on fluid restrictions to 1, 200Ml or 1.2L Activities you can perform: Regular-No Restrictions Follow up Referrals: Oncology - 3-[address] Monahan PCP Follow-up - [address] Virginia Nogueira New Medications: Amoxicillin-Clavulanate Liq (Augmentin Liq) 250-62.5 Mg/5 Ml Susp 500 MG PO TID 500 mg (10 mL). Substitute the 250-62.5 mg/5 ml susp. for the 500 mg tab for adults having difficulty swallowing. Infection Days 5 Ref 0 ML Continued Medications: Aspirin (Aspirin) 81 Mg Chew 81 MG CHEW DAILY Ref 0 TAB Budesonide-Formoterol Inh (Symbicort Inh) 80-4.5 Mcg/Act Aero 2 PUFF INH Q12HR Asthma Management #1 Ref 0 INHALER Clopidogrel (Plavix) 75 Mg Tab 75 MG PO DAILY Blood Clot Prevention #30 Ref 0 TAB Gabapentin (Gabapentin) 300 Mg Cap 300 MG PO TID #90 Ref 0 CAP Hydrocodone-Acetaminophen ([place]) 7.5-325 mg Tab 1 TAB PO Q6H PRN PAIN Ref 0 TAB Levothyroxine (Levothyroxine) 50 Mcg Tab 50 MCG PO DAILY Thyroid #30 Ref 0 TAB Omeprazole (Omeprazole) 20 Mg Tab 20 MG PO DAILY #30 Ref 0 TAB Ondansetron (Zofran) 8 Mg Tab 8 MG PO TID Nausea/Vomiting Ref 0 TAB Prochlorperazine Maleate (Prochlorperazine Maleate) 10 Mg Tab 10 MG PO Q6H PRN NAUSEA OR VOMITING #6 Ref 0 TAB Promethazine (Phenergan) 25 Mg Tab 25 MG PO Q6H PRN Nausea/Vomiting Ref 0 TAB Bethany Quezada Apr 29, 2016 11:03
--- NOTE | 2016-04-29 11:05 | HHI.DCPOC ---
Discharge Care Plan Diagnosis: (1) Metastatic squamous cell carcinoma to lung (2) Hypertension (3) Symptomatic anemia (4) Leukocytosis (5) Hyponatremia (6) Sacral decubitus ulcer, stage II (7) Thrombocytopenia (8) Tobacco abuse disorder Goals to Promote Your Health * To prevent worsening of your condition and complications - Pt will complete antibiotic regimen with Augmentin liquid 500mg three times daily - She will have labs redrawn by home health nursing on Monday05/02/[address] Monahan - Pt will continue to thicken her liquids to pudding thick consistency - She will continue to restrict her fluid intake to 1200mL or 1.2 Liters per day - Pt is to followup with Dr. Monahan next week, call for an appt. - Pt is to followup with her PCP in 1 week Directions to Meet Your Goals Take your medications as prescribed Follow your dietary instruction Follow activity as directed Keep your appointments as scheduled Take your immunizations and boosters as scheduled If your symptoms worsen call your PCP, if no PCP go to Urgent Care Center or Emergency Room Smoking is Dangerous to Your Health. Avoid second hand smoke Call the 24-hour hour crisis hotline for domestic abuse at Bethany Quezada Apr 29, 2016 11:05
--- NOTE | 2016-04-29 11:16 | PD.ONC.PN ---
Subjective Subjective Remarks Afebrile overnight. Patient sitting up in bed awake and alert. She states she feels great today but still feels weak. She is asking how much longer she will be in the hospital. Objective Data Date Time Temp Pulse Resp B/P Pulse Ox O2 Delivery O2 Flow Rate FiO2 04/29/16 08:04 96.6 74 16 115/71 99 04/29/16 05:19 18 04/29/16 04:00 97.8 74 20 92/58 95 04/29/16 00:00 97.6 76 20 90/52 96 04/28/16 20:17 74 04/28/16 20:00 98.4 81 20 92/54 98 04/28/16 16:00 96.9 85 16 97/60 99 04/28/16 12:00 95.9 79 16 82/53 96 04/29/16 04/29/16 04/29/16 07:00 15:00 23:00 Intake Total 540 ml Output Total 900 ml Balance -360 ml Result Diagram: 04/29/16 0416 04/29/16 0416 Laboratory Results Laboratory Tests Test 04/28/16 04/29/16 11:45 04:16 Vancomycin Level Trough 19.0 MCG/ML White Blood Count 7.0 TH/MM3 Red Blood Count 2.16 MIL/MM3 Hemoglobin 8.0 GM/DL Hematocrit 22.9 % Mean Corpuscular Volume 105.8 FL Mean Corpuscular Hemoglobin 36.9 PG Mean Corpuscular Hemoglobin 34.9 % Concent Red Cell Distribution Width 28.0 % Platelet Count 130 TH/MM3 Mean Platelet Volume 9.1 FL Neutrophils (%) (Auto) 78.6 % Lymphocytes (%) (Auto) 9.0 % Monocytes (%) (Auto) 11.9 % Eosinophils (%) (Auto) 0.2 % Basophils (%) (Auto) 0.3 % Neutrophils # (Auto) 5.5 TH/MM3 Lymphocytes # (Auto) 0.6 TH/MM3 Monocytes # (Auto) 0.8 TH/MM3 Eosinophils # (Auto) 0.0 TH/MM3 Basophils # (Auto) 0.0 TH/MM3 CBC Comment AUTO DIFF Differential Total Cells 100 Counted Neutrophils % (Manual) 56 % Band Neutrophils % 29 % Lymphocytes % 9 % Monocytes % 6 % Neutrophils # (Manual) 6.0 TH/MM3 Differential Comment FINAL DIFF MANUAL Toxic Granulation 2+ Platelet Estimate NORMAL Platelet Morphology Comment NORMAL Sodium Level 138 MEQ/L Potassium Level 3.4 MEQ/L Chloride Level 100 MEQ/L Carbon Dioxide Level 33.2 MEQ/L Anion Gap 5 MEQ/L Blood Urea Nitrogen 9 MG/DL Creatinine 0.29 MG/DL Estimat Glomerular Filtration 233 ML/MIN Rate Random Glucose 78 MG/DL Calcium Level 8.5 MG/DL Magnesium Level 1.9 MG/DL Culture Results Microbiology Date/Time Procedure Status Source Growth 04/27/16 19:20 Aerobic Blood Culture - Preliminary Resulted Blood Other NO GROWTH IN 1 DAY 04/27/16 19:20 Anaerobic Blood Culture - Preliminary Resulted Blood Other NO GROWTH IN 1 DAY Administered Medications Medications (Trade) Dose Ordered Sig/Matt Route PRN Reason Start Time Stop Time Status Last Admin Dose Admin IV Flush (NS Flush) 2 ml BID IVF 04/24/16 09:00 04/29/16 08:45 Aspirin (Aspirin Chew) 81 mg DAILY CHEW 04/24/16 13:15 04/29/16 08:44 Budesonide/ Formoterol Fumarate (Symbicort 80-4.5 Mcg Inh) 2 puff Q12HR INH 04/24/16 13:15 04/29/16 08:45 Clopidogrel Bisulfate (Plavix) 75 mg DAILY PO 04/24/16 13:15 04/29/16 08:44 Gabapentin (Neurontin) 300 mg TID PO 04/24/16 18:00 04/29/16 08:44 Acetaminophen/ Hydrocodone Bitart ([place] 7.5-325 Mg) 1 tab Q6H PRN PO PAIN 3-10 04/24/16 13:15 04/29/16 04:19 Levothyroxine Sodium (Synthroid) 50 mcg DAILY@06 PO 04/25/16 06:00 04/29/16 04:09 Pantoprazole Sodium (Protonix) 20 mg DAILY PO 04/25/16 09:00 04/29/16 08:44 Ondansetron HCl (Zofran Inj) 4 mg Q6H PRN IV nausea 04/24/16 13:15 04/25/16 14:47 Temazepam (Restoril) 15 mg HS PRN PO insominia 04/24/16 13:45 04/28/16 21:10 Lorazepam (Ativan) 0.5 mg Q6H PRN PO anxiety 04/26/16 08:45 04/26/16 14:54 Sodium Chloride 1 gm 1 gm BID PO 04/26/16 21:15 04/29/16 08:44 Piperacillin Sod/ Tazobactam Sod (Zosyn 3.375 Gm Premix) 50 ml @ 100 mls/hr Q6H IV 04/27/16 10:00 04/29/16 08:45 Objective Remarks GENERAL: Chronically ill appearing female sitting up in bed in no distress. SKIN: Warm and dry. HEAD: Normocephalic. EYES: No injection or drainage. NECK: Supple, trachea midline. CARDIOVASCULAR: +S1/S2. No murmur appreciated. RESPIRATORY: Lungs clear throughout, breathing easy and unlabored. GASTROINTESTINAL: Abdomen soft, non-tender, nondistended. EXTREMITIES: No cyanosis, or edema. MUSCULOSKELETAL: Generalized weakness. NEUROLOGICAL: No obvious focal deficit. Awake, alert, and oriented x3. Assessment/Plan Problem List: (1) Squamous cell carcinoma of head and neck Status: Acute Plan: --will place chemo on hold. possibly plan to give immunotherapy at some point once discharged February 2014--diagnosed and rec'd carboplatin and Taxol+ concurrent radiation July 2014--completed chemo/radiation --Remission--- October 2015--found to have lung mets, biopsy proven (again squamous cell carcinoma consistent with H&N) --Carbo/Taxol x 7 cycles --last cycle on Apr.11. rec'd Neulasta on body injector on Apr.11 (2) Leukocytosis Status: Resolved Plan: -- WBC's now WNL. Neulasta on 04/11/16 --BC 04/27 no growth --BC on 04/25 show no growth x 1 day. --BC on 04/24 show 1 positive for staph epidermis, likely contaminant. --?infection with toxic granulation noted. On Zosyn/vanc, WBC trending down. (3) Thrombocytopenia Status: Chronic Plan: --d/t chemo, monitor transfuse as needed -- Improving (4) Symptomatic anemia Status: Acute Plan: --d/t chemo --s/p 1 unit pRBC during this admission--reportedly her symptoms of dyspnea improved s/p transfusion. --Hgb stable (5) Hyponatremia Status: Resolved Plan: -- Stable -- Previously on Samsca -- Na up to 138. Assessment 65y/o female with head and neck cancer, admitted with aspiration w/ + BC. h/o Head and neck cancer diagnosed in February 2014. She was found to have lung metastasis in September 2015. Anxiety disorder. DVT of the right lower extremity. Hypothyroidism Plan 1. Consult PT to work on strengthening exercises 2. Monitor labs; all counts improving. 3. Continue Abx 4. Supportive care Attending Statement The exam, history, and the medical decision-making described in the above note were completed with the assistance of the mid-level provider. I reviewed and agree with the findings presented. I attest that I had a [id number] encounter with the patient on the same day, and personally performed and documented my assessment and findings in the medical record. Feeling better. Hyponatremia resolved. Leukocytosis resolved. Will transfuse 1U PRBC which may give her more energy. Discussed with . Can be d/c once clear by ID. Problem Qualifiers (1) Leukocytosis: Qualified Code: D72.829 - Leukocytosis, unspecified type Analisa Campos Apr 29, 2016 11:16 Hai Monahan MD Apr 29, 2016 18:03
--- NOTE | 2016-04-29 11:32 | HHI.IDPN ---
Note Infectious Disease Note Plan discussed with primary team Doing well despite Vanco IV being stopped. Ok to Dc on Augmentin liquid. Will sign off please call back if any change in clinical condition or questions. Vital Signs Date Time Temp Pulse Resp B/P Pulse Ox O2 Delivery O2 Flow Rate FiO2 04/29/16 08:04 96.6 74 16 115/71 99 04/29/16 05:19 18 04/29/16 04:00 97.8 74 20 92/58 95 04/29/16 00:00 97.6 76 20 90/52 96 04/28/16 20:17 74 04/28/16 20:00 98.4 81 20 92/54 98 04/28/16 16:00 96.9 85 16 97/60 99 04/28/16 12:00 95.9 79 16 82/53 96 Laboratory Tests Test 04/28/16 04/29/16 04/29/16 11:45 04:16 10:14 Vancomycin Level Trough 19.0 MCG/ML White Blood Count 7.0 TH/MM3 Red Blood Count 2.16 MIL/MM3 Hemoglobin 8.0 GM/DL Hematocrit 22.9 % Mean Corpuscular Volume 105.8 FL Mean Corpuscular Hemoglobin 36.9 PG Mean Corpuscular Hemoglobin 34.9 % Concent Red Cell Distribution Width 28.0 % Platelet Count 130 TH/MM3 Mean Platelet Volume 9.1 FL Neutrophils (%) (Auto) 78.6 % Lymphocytes (%) (Auto) 9.0 % Monocytes (%) (Auto) 11.9 % Eosinophils (%) (Auto) 0.2 % Basophils (%) (Auto) 0.3 % Neutrophils # (Auto) 5.5 TH/MM3 Lymphocytes # (Auto) 0.6 TH/MM3 Monocytes # (Auto) 0.8 TH/MM3 Eosinophils # (Auto) 0.0 TH/MM3 Basophils # (Auto) 0.0 TH/MM3 CBC Comment AUTO DIFF Differential Total Cells 100 Counted Neutrophils % (Manual) 56 % Band Neutrophils % 29 % Lymphocytes % 9 % Monocytes % 6 % Neutrophils # (Manual) 6.0 TH/MM3 Differential Comment FINAL DIFF MANUAL Toxic Granulation 2+ Platelet Estimate NORMAL Platelet Morphology Comment NORMAL Sodium Level 138 MEQ/L Potassium Level 3.4 MEQ/L Chloride Level 100 MEQ/L Carbon Dioxide Level 33.2 MEQ/L Anion Gap 5 MEQ/L Blood Urea Nitrogen 9 MG/DL Creatinine 0.29 MG/DL Estimat Glomerular Filtration 233 ML/MIN Rate Random Glucose 78 MG/DL Calcium Level 8.5 MG/DL Magnesium Level 1.9 MG/DL Blood Type AB NEGATIVE Antibody Screen POSITIVE Crossmatch Leukocyte-Reduced Red Blood Cells Blood Bank Comment Cristela Poole MD Apr 29, 2016 11:32
[2016-04-29] MEDS ORDERED: PHARMACY ORDERED LAB XX ONE (11:45)
[2016-04-29 12:20] VITALS: BP 120/64; PULSE 71; RESP 18; TEMP 97.1; O2SAT 98
[2016-04-29 13:15] VITALS: BP 120/64; PULSE 71; RESP 18; TEMP 97; O2SAT 98
[2016-04-29 13:35] VITALS: BP 88/64; PULSE 76; RESP 16; TEMP 97.4
--- NOTE | 2016-05-02 08:33 | PQ ---
Physician Query Response Document PATIENT: DIDIER BESS : 1950 ADMIT DATE: 04/24/2016 2:56 AM DISCH DATE: 04/29/2016 6:06 PM RESPONDING PROVIDER #: Rbraithw QUERY TEXT: Sepsis Query Based on your medical judgement, can you further clarify the folowiin. Sepsis (SIRS due to an infection) 2. Sepsis with Organ Dysfunction 3. A localized Infection only 4. Another condition - please specify 5. Unable to determine - please explain. Depending on your selection above, please indicate one of the below if applicable: - Sepsis was present on Admission - Sepsis developed after admission The patient's Clinical Indicators include: on admission WBC 26 BANDS 15 RR > 20 SWALLOW STUDY SEVERE OROPHARYNGEAL DYSPHAGIA POSSIBLE ASPIRATION PNEUMONIA Sepsis in Immunecompromised patient. May not have typical signs of infection/sepsis. Aspiration Pneumonia. Patient failed swallow eval and consumes significant amount alcohol along with pain control narcotics Cristela Poole MDApr 27, 2016 17:40 Query created by: Nidia Gurrola on 04/28/2016 8:41 AM RESPONSE TEXT: This patient had staph epidermidis positive blood cultures on admission. Later determined to be conta minant. So sepsis not clearly present on admission. QUERY TEXT: Pneumonia Specificity Pneumonia is documented in the Medical Record. Please specify the type of pneumonia and the causative organism (includes probable or suspected) Such as: Type: -- Aspiration pneumonia (please also specify the aspirate) - [place] (please specify cause) - Please indicate if the aspiration is postprocedure -- Bacterial (please document suspected or probable organism) -- Bronchopneumonia (please document suspected or probable organism) -- Interstitial pneumonia -- Organizing pneumonia / BOOP -- Pneumonia with influenza, guerrero flu, or H1N1 flu -- RSV -- Tuberculosis, pulmonary -- Viral -- Other, please specify The patient's Clinical Indicators include: RESP DISTRESS ON ADMISSION SWALLOW STUDY REVEALS SEVERE PHARANGEAL PHASE DYSPHAGIA WITH PENETRATION AND ASPIRATION ELEVATED WBC 26 AND BAND 15 CHRONIC ASPIRATION NOTED Query created by: Nidia Gurrola on 04/28/2016 8:46 AM RESPONSE TEXT: This patient has diagnosis of recurrent aspiration but no clear evidence for pneumonia during this ad mission. Electronically signed by: Kobi Mac MD 05/02/2016 8:29 AM
== END 2016-04-29 18:06 | disposition home health service (06) | DRG 392 ==
LOC: NEPC 23:25 → NEDA 04-24 02:56 → NEDH 04-24 10:06 → N07A 04-24 12:25
PROVIDERS: ADMIT Hospitalist; ATTEND Hospitalist
PROC: 30253N1 (ICD-10-PCS; principal; 2016-04-24)
DX: R13.12 Dysphagia, oropharyngeal phase (principal); L89.152 Pressure ulcer of sacral region, stage 2; C78.00 Secondary malignant neoplasm of unspecified lung; D69.6 Thrombocytopenia, unspecified; E22.2 Syndrome of inappropriate secretion of antidiuretic hormone; C76.0 Malignant neoplasm of head, face and neck; D57.1 Sickle-cell disease without crisis; L03.317 Cellulitis of buttock; I10 Essential (primary) hypertension; D53.9 Nutritional anemia, unspecified; Z85.89 Personal history of malignant neoplasm of other organs and systems; F17.210 Nicotine dependence, cigarettes, uncomplicated; Z92.3 Personal history of irradiation; T45.1X5A Adverse effect of antineoplastic and immunosuppressive drugs, initial encounter; E03.9 Hypothyroidism, unspecified; J44.9 Chronic obstructive pulmonary disease, unspecified; R09.02 Hypoxemia; F41.0 Panic disorder [episodic paroxysmal anxiety]; Z86.718 Personal history of other venous thrombosis and embolism
CPT/HCPCS: 36430; 36598; 70491; 71010; 71275; 74230; 80048; 80053; 80202; 82436; 82550; 82607; 82746; 83735; 83930; 83935; 84295; 84300; 84443; 84484; 85007; 85027; 85610; 85730; 86077; 86850; 86870; 86900; 86901; 86902; 86920; 86922; 87040; 87186; 87205; 87449; 87804; 93005; 94640; 94664; 96361; 96374; J1940; J2405; J2543; J2930; J2997; J3370; J3475; J3480; J7030; J7050; P9016; Q9967